=== PATIENT | female | born 1950 | race Caucasian/White ===

== ENCOUNTER 2018-01-10 21:55 | Emergency (ER) | payer OTHER ==
[~2018-01-10] VITALS: Ht 170.2 cm; Wt 136.1 kg
[~2018-01-10 21:55] MED LIST: ACETAMINOPHEN325 MG PO; ACYC800 PO; AMIT75 PO; BENTYL10 MG PO; CLIN150 PO; CLOB.05TC; CONESTTC; Cipro250 MG PO; EPIN.3I IM; GABA300 PO; GABA400 PO; HYDR1TAB94 PO; IBUP600 PO; LEVFLO500; LEVSOD137 PO; LIDO2TG30 TOP; MAGCIT300 PO; METR500; Naproxen250 MG PO; Norco 5-325 Ta1 EACH PO; OMEP40CA12 PO; PANT40 PO; PRED10 PO; Percocet 5-3251 EACH PO; Polytrim Eye Dr10 ML LEFTEYE; Protonix40 MG PO; RXCLIN PO; SENN187 PO; TRIA80TC TOP; TUMS ULTRA ST1177 MG PO; VENL150ER PO; VENL75 PO; VITAMIN D31000 UNIT PO; Zofran Odt4 MG SL; Zofran Odt8 MG SL
[2018-01-10 22:32] LABS: BASOPHILS ABSOLUTE AUTO 0.04 K/mm3 (0.00-0.23); BASOPHILS PERCENT AUTO 0 % (0-2); EOSINOPHILS ABSOLUTE AUTO 0.15 K/mm3 (0.00-0.68); EOSINOPHILS PERCENT AUTO 1 % (0-6); Hematocrit 41.2 % (33.0-51.0); IMMATURE GRAN ABSOLUTE AUTO 0.03 K/mm3 (0.00-0.10); IMMATURE GRAN PERCENT AUTO 0 % (0-1); LYMPHOCYTES ABSOLUTE AUTO 2.17 K/mm3 (0.84-5.20); LYMPHOCYTES PERCENT AUTO 20 % (21-46); MONOCYTES ABSOLUTE AUTO 1.33 K/mm3 (0.16-1.47); MONOCYTES PERCENT AUTO 12 % (4-13); Mean Corpuscular HGB 27.6 pg (26.0-34.0); Mean Corpuscular HGB Conc 31.6 g/dL (31.5-36.5); Mean Corpuscular Volume 88 fL (80-100); Mean Platelet Volume 10.6 fL (9.1-12.4); NEUTROPHILS ABSOLUTE AUTO 7.42 K/mm3 (1.96-9.15); NEUTROPHILS PERCENT AUTO 67 % (41-73); Platelet Count 321 K/mm3 (150-400); RDW Coefficient Variation 14.6 % (11.7-14.2); RDW Standard Deviation 47.2 fL (35.1-46.3); Red Blood Cell Count 4.71 M/mm3 (3.80-5.20); White Blood Cell Count 11.14 K/mm3 (4.00-11.30)
[2018-01-10 22:48] LABS: Albumin/Globulin Ratio 0.5 (0.8-1.8); Bilirubin, Total 0.4 mg/dL (0.1-1.0); Bun/Creatinine Ratio 16.4 (12.0-20.0); Calcium, Blood 8.9 mg/dL (8.5-10.1); Creatinine, Blood 1.28 mg/dL (0.40-1.00); Globulin, Blood 5.7 g/dL (2.2-4.0); Potassium, Blood 4.4 mmol/L (3.5-5.5); Total Protein, Blood 8.7 g/dL (6.4-8.2)
[2018-01-10] MEDS ORDERED: DEXT30SU PO (23:26)
[2018-04-04] MEDS ORDERED: ERGO400 PO (13:52)
[2018-04-04] MEDS ORDERED: Estrogel93 GM VAG (13:52)
[2018-04-04] MEDS ORDERED: TUMS ULTRA ST1177 MG PO (13:52)
[2018-04-04] MEDS ORDERED: TRIA15CR3 TOP (13:53)
[2018-04-04] MEDS ORDERED: LIDO5TO TOP (13:53)
[2018-04-04] MEDS ORDERED: VENL150ER PO (14:32)
[2018-04-04] MEDS ORDERED: PREG75 PO (14:33)
[2018-04-04] MEDS ORDERED: PROM25 PO (14:33)
[2018-04-04] MEDS ORDERED: CLOB.05TO TOP (14:33)
[2018-04-04] MEDS ORDERED: LEVSOD137 PO (14:34)
[2018-04-04] MEDS ORDERED: CHOL10002 PO (14:35)
[2018-04-04] MEDS ORDERED: TYLENOL ES PO (14:35)
[2018-04-04] MEDS ORDERED: Solaraze100 GM TOP (14:36)
[2018-05-24] MEDS ORDERED: ACET325 PO (09:58)
[2018-05-24] MEDS ORDERED: CENTRUM SILVER1 EAC3 PO (09:58)
== END 2018-01-10 23:53 | disposition home or self-care (01) ==
LOC: ER 21:55
PROVIDERS: Emergency Medicine
DX: J20.9 Acute bronchitis, unspecified (principal); E03.9 Hypothyroidism, unspecified; J45.909 Unspecified asthma, uncomplicated; Z88.1 Allergy status to other antibiotic agents; Z88.5 Allergy status to narcotic agent; Z91.048 Other nonmedicinal substance allergy status; Z91.09 Other allergy status, other than to drugs and biological substances; Z88.8 Allergy status to other drugs, medicaments and biological substances; Z91.030 Bee allergy status; Z79.899 Other long term (current) drug therapy; Z90.710 Acquired absence of both cervix and uterus
CPT/HCPCS: 36415; 71046; 80053; 85025; 99283

== ENCOUNTER 2018-04-07 07:55 | Day surgery (SDC) | payer OTHER ==
[~2018-04-07] VITALS: Ht 167.6 cm; Wt 135.2 kg
[~2018-04-07 07:55] MED LIST changes: +CHOL10002 PO; +CLOB.05TO TOP; +DEXT30SU PO; +ERGO400 PO; +Estrogel93 GM VAG; +LIDO5TO TOP; +PREG75 PO; +PROM25 PO; +Solaraze100 GM TOP; +TRIA15CR3 TOP; +TYLENOL ES PO
== END 2018-04-07 23:00 | disposition home or self-care (01) ==
LOC: ORSCMMR 07:55 → ORD 09:30 → ORSCMMR 23:00
PROVIDERS: Podiatrist Foot & Ankle Surgery
PROC: 0SNQ0ZZ Release Left Toe Phalangeal Joint, Open Approach (ICD-10-PCS; principal; 2018-04-07 09:30)
PROC: 0SGQ0ZZ (ICD-10-PCS; principal; 2018-04-07 09:30)
PROC: 0L8W0ZZ Division of Left Foot Tendon, Open Approach (ICD-10-PCS; principal; 2018-04-07 09:30)
PROC: 0QBP0ZZ Excision of Left Metatarsal, Open Approach (ICD-10-PCS; principal; 2018-04-07 09:30)
DX: M20.42 Other hammer toe(s) (acquired), left foot (principal); M79.673 Pain in unspecified foot; M19.079 Primary osteoarthritis, unspecified ankle and foot; M89.8X9 Other specified disorders of bone, unspecified site; E66.01 Morbid (severe) obesity due to excess calories; Z68.42 Body mass index [BMI] 45.0-49.9, adult; Z79.899 Other long term (current) drug therapy
CPT/HCPCS: J0690; J2250; J3010; J7120

== ENCOUNTER 2018-04-08 07:42 | Day surgery (SDC) | payer OTHER ==
[~2018-04-08] VITALS: Ht 170.2 cm; Wt 133.4 kg
== END 2018-04-08 10:57 | disposition home or self-care (01) ==
LOC: ORSCSDS 07:42
PROVIDERS: Orthopaedic Surgery
PROC: 0LN70ZZ Release Right Hand Tendon, Open Approach (ICD-10-PCS; principal; 2018-04-08 09:00)
DX: M65.341 Trigger finger, right ring finger (principal); E03.9 Hypothyroidism, unspecified; E66.01 Morbid (severe) obesity due to excess calories; Z79.899 Other long term (current) drug therapy
CPT/HCPCS: J0171; J2250; J3010

== ENCOUNTER 2018-05-11 11:08 | Day surgery (SDC) | payer OTHER ==
[~2018-05-11] VITALS: Ht 170.2 cm; Wt 131.0 kg
== END 2018-05-11 12:35 | disposition home or self-care (01) ==
LOC: ORSCSDS 11:08
PROVIDERS: Internal Medicine Gastroenterology
PROC: 0DBE8ZX Excision of Large Intestine, Via Natural or Artificial Opening Endoscopic, Diagnostic (ICD-10-PCS; principal; 2018-05-11 12:30)
PROC: 0DBL8ZX Excision of Transverse Colon, Via Natural or Artificial Opening Endoscopic, Diagnostic (ICD-10-PCS; principal; 2018-05-11 12:30)
PROC: 0DBN8ZX Excision of Sigmoid Colon, Via Natural or Artificial Opening Endoscopic, Diagnostic (ICD-10-PCS; principal; 2018-05-11 12:30)
DX: R19.7 Diarrhea, unspecified (principal); D12.3 Benign neoplasm of transverse colon; D12.5 Benign neoplasm of sigmoid colon; K57.30 Diverticulosis of large intestine without perforation or abscess without bleeding; K64.8 Other hemorrhoids; Z86.010 Personal history of colon polyps; K52.9 Noninfective gastroenteritis and colitis, unspecified; G47.33 Obstructive sleep apnea (adult) (pediatric); K21.9 Gastro-esophageal reflux disease without esophagitis; E66.9 Obesity, unspecified; Z68.42 Body mass index [BMI] 45.0-49.9, adult; Z79.899 Other long term (current) drug therapy
CPT/HCPCS: 88305; J2250; J7120

== ENCOUNTER 2018-05-31 10:35 | Day surgery (SDC) | payer OTHER ==
[~2018-05-31] VITALS: Ht 170.2 cm; Wt 130.5 kg
[~2018-05-31 10:35] MED LIST changes: +ACET325 PO; +CENTRUM SILVER1 EAC3 PO
== END 2018-05-31 17:36 | disposition home or self-care (01) ==
LOC: ORSCSDS 10:35
PROVIDERS: Orthopaedic Surgery
PROC: 0LQ14ZZ Repair Right Shoulder Tendon, Percutaneous Endoscopic Approach (ICD-10-PCS; principal; 2018-05-31 13:00)
PROC: 0RNJ4ZZ Release Right Shoulder Joint, Percutaneous Endoscopic Approach (ICD-10-PCS; principal; 2018-05-31 13:00)
DX: M75.111 Incomplete rotator cuff tear or rupture of right shoulder, not specified as traumatic (principal); M75.51 Bursitis of right shoulder; S46.101A Unspecified injury of muscle, fascia and tendon of long head of biceps, right arm, initial encounter; G47.33 Obstructive sleep apnea (adult) (pediatric); E66.01 Morbid (severe) obesity due to excess calories; Z68.42 Body mass index [BMI] 45.0-49.9, adult; Z79.899 Other long term (current) drug therapy
CPT/HCPCS: C1713; J0171; J0330; J2250; J2405; J3010; J7120

== ENCOUNTER 2018-12-08 09:52 | Emergency (ER) | payer OTHER ==
[~2018-12-08] VITALS: Ht 170.2 cm; Wt 127.0 kg
[2018-12-08 11:14] LABS: BASOPHILS ABSOLUTE AUTO 0.07 K/mm3 (0.00-0.23); BASOPHILS PERCENT AUTO 1 % (0-2); EOSINOPHILS ABSOLUTE AUTO 0.28 K/mm3 (0.00-0.68); EOSINOPHILS PERCENT AUTO 4 % (0-6); Hematocrit 45.8 % (33.0-51.0); Hemoglobin 14.4 g/dL (11.5-16.0); IMMATURE GRAN ABSOLUTE AUTO 0.02 K/mm3 (0.00-0.10); IMMATURE GRAN PERCENT AUTO 0 % (0-1); LYMPHOCYTES ABSOLUTE AUTO 1.88 K/mm3 (0.84-5.20); LYMPHOCYTES PERCENT AUTO 28 % (21-46); MONOCYTES ABSOLUTE AUTO 0.72 K/mm3 (0.16-1.47); MONOCYTES PERCENT AUTO 11 % (4-13); Mean Corpuscular HGB 27.6 pg (26.0-34.0); Mean Corpuscular HGB Conc 31.4 g/dL (31.5-36.5); Mean Corpuscular Volume 88 fL (80-100); Mean Platelet Volume 11.9 fL (9.1-12.4); NEUTROPHILS ABSOLUTE AUTO 3.85 K/mm3 (1.96-9.15); NEUTROPHILS PERCENT AUTO 56 % (41-73); Platelet Count 263 K/mm3 (150-400); RDW Coefficient Variation 15.3 % (11.7-14.2); RDW Standard Deviation 48.7 fL (35.1-46.3); Red Blood Cell Count 5.22 M/mm3 (3.80-5.20); White Blood Cell Count 6.82 K/mm3 (4.00-11.30)
[2018-12-08 11:35] LABS: Alanine Aminotransfer (ALT/SGP 24 U/L (12-78); Albumin, Blood 3.3 g/dL (3.4-5.0); Albumin/Globulin Ratio 0.7 (0.8-1.8); Alk Phos 81 U/L (50-136); Anion Gap 6 mmol/L (6-16); Aspartate Aminotrans (AST/SGOT 24 U/L (12-37); Bilirubin, Total 0.5 mg/dL (0.1-1.0); Blood Urea Nitrogen 27 mg/dL (8-24); Bun/Creatinine Ratio 25.2 (12.0-20.0); CO2, Blood 26 mmol/L (21-32); Calcium, Blood 8.4 mg/dL (8.5-10.1); Chloride, Blood 109 mmol/L (98-108); Creatinine, Blood 1.07 mg/dL (0.40-1.00); Globulin, Blood 4.7 g/dL (2.2-4.0); Glomerular Filtration Rate 54 (60-); Glucose, Blood 89 mg/dL (70-99); Potassium, Blood 3.9 mmol/L (3.5-5.5); Sodium, Blood 141 mmol/L (136-145); Troponin I <0.015 ng/mL (0.000-0.040)
[2018-12-08] MEDS ORDERED: Norco 5-325 Ta1 EACH PO (13:30)
[2018-12-08] MEDS ORDERED: SUCR1 PO (13:30)
[2018-12-08] MEDS ORDERED: OMEPRAZOLE MAGN20 MG PO (13:30)
== END 2018-12-08 15:11 | disposition home or self-care (01) ==
LOC: ER 09:52
PROVIDERS: Physician Assistant
DX: R07.89 Other chest pain (principal); R11.2 Nausea with vomiting, unspecified; R19.7 Diarrhea, unspecified; Z88.1 Allergy status to other antibiotic agents; Z88.8 Allergy status to other drugs, medicaments and biological substances; Z88.5 Allergy status to narcotic agent; Z91.030 Bee allergy status; Z79.899 Other long term (current) drug therapy; F32.9 Major depressive disorder, single episode, unspecified
CPT/HCPCS: 36415; 71046; 71260; 74019; 80053; 83690; 84484; 85025; 85379; 93005; 93010; 96360; 99284-25; J7120; Q9967

== ENCOUNTER 2019-03-16 07:28 | Day surgery (SDC) | payer OTHER ==
[~2019-03-16] VITALS: Ht 167.6 cm; Wt 131.6 kg
[~2019-03-16 07:28] MED LIST changes: +BACL10 PO; +EPIPEN0.3 MG/0.3 IM; +OMEPRAZOLE MAGN20 MG PO; +PREG300 PO; +SUCR1 PO; +Venlafaxine HC225 MG PO
--- NOTE | 2019-03-16 07:49 | NUR ---
PT ADMITTED TO [facility]. AGREES WITH PLANNED SURGER. MEDS, ALLERGIES AND HX REVIEWED. LUNG SOUNDS CLEAR.
--- NOTE | 2019-03-16 10:26 | NUR ---
PT TO STEPDOWN AWAKE, CONVERSING WITH STAFF. C/O 06/07 PAIN TO RIGHT HAND. CMS INTACT TO HAND. CAP REFILL BRISK. COUGHING UP MUCOUS INTO KLEENEX. PT STATES "I DO THIS ALL THE TIME."
--- NOTE | 2019-03-16 10:30 | NUR ---
SIPPING ON PO FLUIDS
--- NOTE | 2019-03-16 10:45 | NUR ---
PT MEDICATED FOR PAIN WITH 2 NORCO PER REQUEST. PAIN LEVEL 7/10.
--- NOTE | 2019-03-16 10:50 | NUR ---
TO BEDSIDE AT THIS TIME. PT VISITING WITH .
--- NOTE | 2019-03-16 10:54 | NUR ---
REVIEWED DISCHARGE INSTRUCTIONS WITH PATIENT AND - BOTH OF WHOM VERBALIZE UNDERSTANDING OF ALL INSTRUCTIONS GIVEN.
--- NOTE | 2019-03-16 11:04 | NUR ---
PT SITTING AT EDGE OF BED - ASSISTING PATIENT TO DRESS SELF. REEDUCATED ON NOT USING RIGHT HAND. PT DEMONSTRATES GOOD TECHNIQUE.
--- NOTE | 2019-03-16 11:11 | NUR ---
IV D/C TIP INTACT. PT DISCHARGED HOME VIA WC WITH TO DRIVE HER.
== END 2019-03-16 23:37 | disposition home or self-care (01) ==
LOC: ORSCMMR 07:28 → ORD 08:45 → ORSCMMR 08:45 → ORD 14:00 → ORSCMMR 23:37
PROVIDERS: Orthopaedic Surgery
PROC: 0LN80ZZ Release Left Hand Tendon, Open Approach (ICD-10-PCS; principal; 2019-03-16 08:45)
DX: M65.352 Trigger finger, left little finger (principal); M65.342 Trigger finger, left ring finger; M65.332 Trigger finger, left middle finger; M65.322 Trigger finger, left index finger; M65.312 Trigger thumb, left thumb; I25.2 Old myocardial infarction; G47.33 Obstructive sleep apnea (adult) (pediatric); E66.01 Morbid (severe) obesity due to excess calories; Z68.42 Body mass index [BMI] 45.0-49.9, adult; Z79.899 Other long term (current) drug therapy
CPT/HCPCS: A9270-GY; J0690; J1100; J1885; J2250; J2405; J2704; J7120

== ENCOUNTER 2019-03-21 10:19 | Day surgery (SDC) | payer OTHER ==
[~2019-03-21] VITALS: Ht 170.2 cm; Wt 129.2 kg
== END 2019-03-21 12:51 | disposition home or self-care (01) ==
LOC: ORSCSDS 10:19
PROVIDERS: Internal Medicine Gastroenterology
PROC: 0DB58ZX Excision of Esophagus, Via Natural or Artificial Opening Endoscopic, Diagnostic (ICD-10-PCS; principal; 2019-03-21 12:00)
PROC: 0D758ZZ Dilation of Esophagus, Via Natural or Artificial Opening Endoscopic (ICD-10-PCS; principal; 2019-03-21 12:00)
DX: R13.10 Dysphagia, unspecified (principal); K21.9 Gastro-esophageal reflux disease without esophagitis; I10 Essential (primary) hypertension; E03.9 Hypothyroidism, unspecified; Z79.899 Other long term (current) drug therapy
CPT/HCPCS: J2704; J7120

== ENCOUNTER 2019-06-09 11:34 | Day surgery (SDC) | payer OTHER ==
[~2019-06-09] VITALS: Ht 170.2 cm; Wt 131.8 kg
[~2019-06-09 11:34] MED LIST changes: +Prevacid Soluta30 MG PO
--- NOTE | 2019-06-09 12:25 | NUR ---
06/09/19 1225 Avery Floyd PATIENT STATES "BURNING ALLERGY" TO IODINE. SMALL AMOUNT OF IODINE PLACED TO PATIENT'S RIGHT WRIST TO CHECK FOR ADVERSE REACTION. NO SIGNS OF REACTION NOTED AT THIS TIME, WILL CONTINUE TO MONITOR
--- NOTE | 2019-06-09 15:09 | NUR ---
06/09/19 7974 Estephanie Sanchez Danitza 0612 PT. UP TO RECLINER WITH 2 NURSE SBA. PT. HAS CHRONIC BACK PAIN & ALSO C/O RIGHT FOOT PAIN FROM SURGERY. PT. ALSO C/O MELTON. PT. VERBALIZES WHEN UP TO RECLINER IT MADE HER BACK FEEL BETTER. RIGHT FOOT ELEVATED UP IN RECLINER UP ON 2 PILLOWS & BOOT INTACT. JUICE & SNACK AT HER SIDE. AT HER SIDE. PT. ENC. TO TAKE SLOW DEEP BREATHS. PT. MOANING WITH PAIN. PT. BEING MEDICATED PER DR. HUERTA. ICE BEHIND RIGHT KNEE.
--- NOTE | 2019-06-29 07:39 | NUR ---
06/29/19 0739 Tatianna Melendrez NO SOLUTION NECESSARY NOR ADDED TO DBX BONE PUTTY
== END 2019-06-09 16:47 | disposition home or self-care (01) ==
LOC: ORSCSDS 11:34
PROVIDERS: Podiatrist Foot & Ankle Surgery
PROC: 0LXV0ZZ Transfer Right Foot Tendon, Open Approach (ICD-10-PCS; principal; 2019-06-09 15:00)
PROC: 0QBG0ZZ Excision of Right Tibia, Open Approach (ICD-10-PCS; principal; 2019-06-09 15:00)
DX: S86.311A Strain of muscle(s) and tendon(s) of peroneal muscle group at lower leg level, right leg, initial encounter (principal); M67.471 Ganglion, right ankle and foot; M65.871 Other synovitis and tenosynovitis, right ankle and foot; I12.9 Hypertensive chronic kidney disease with stage 1 through stage 4 chronic kidney disease, or unspecified chronic kidney disease; N18.2 Chronic kidney disease, stage 2 (mild); G47.33 Obstructive sleep apnea (adult) (pediatric); E03.9 Hypothyroidism, unspecified; E66.01 Morbid (severe) obesity due to excess calories; Z68.42 Body mass index [BMI] 45.0-49.9, adult; Z79.899 Other long term (current) drug therapy; I25.2 Old myocardial infarction
CPT/HCPCS: 82947; J0690; J1100; J2370; J2405; J2704; J3010; J7120

== ENCOUNTER 2019-07-02 10:43 | Emergency (ER) | payer OTHER ==
[~2019-07-02] VITALS: Ht 170.2 cm; Wt 130.6 kg
[2019-07-02 11:55] LABS: BASOPHILS ABSOLUTE AUTO 0.05 K/mm3 (0.00-0.23); BASOPHILS PERCENT AUTO 1 % (0-2); EOSINOPHILS ABSOLUTE AUTO 0.13 K/mm3 (0.00-0.68); EOSINOPHILS PERCENT AUTO 2 % (0-6); Hemoglobin 14.4 g/dL (11.5-16.0); IMMATURE GRAN ABSOLUTE AUTO 0.01 K/mm3 (0.00-0.10); IMMATURE GRAN PERCENT AUTO 0 % (0-1); LYMPHOCYTES ABSOLUTE AUTO 1.55 K/mm3 (0.84-5.20); LYMPHOCYTES PERCENT AUTO 28 % (21-46); MONOCYTES ABSOLUTE AUTO 0.56 K/mm3 (0.16-1.47); MONOCYTES PERCENT AUTO 10 % (4-13); Mean Corpuscular HGB 28.5 pg (26.0-34.0); Mean Corpuscular Volume 89 fL (80-100); NEUTROPHILS ABSOLUTE AUTO 3.32 K/mm3 (1.96-9.15); NEUTROPHILS PERCENT AUTO 59 % (41-73); Platelet Count 261 K/mm3 (150-400); RDW Coefficient Variation 14.4 % (11.7-14.2); RDW Standard Deviation 46.6 fL (35.1-46.3); Red Blood Cell Count 5.05 M/mm3 (3.80-5.20); White Blood Cell Count 5.62 K/mm3 (4.00-11.30)
[2019-07-02 12:46] LABS: Alanine Aminotransfer (ALT/SGP 22 U/L (12-78); Albumin, Blood 3.2 g/dL (3.4-5.0); Albumin/Globulin Ratio 0.7 (0.8-1.8); Alk Phos 95 U/L (50-136); Anion Gap 5 mmol/L (6-16); Aspartate Aminotrans (AST/SGOT 17 U/L (12-37); Bilirubin, Total 0.3 mg/dL (0.1-1.0); Blood Urea Nitrogen 15 mg/dL (8-24); Bun/Creatinine Ratio 17.9 (12.0-20.0); CO2, Blood 27 mmol/L (21-32); Calcium, Blood 8.6 mg/dL (8.5-10.1); Chloride, Blood 110 mmol/L (98-108); Creatinine, Blood 0.84 mg/dL (0.40-1.00); Globulin, Blood 4.6 g/dL (2.2-4.0); Glomerular Filtration Rate >60 (60-); Glucose, Blood 98 mg/dL (70-99); Sodium, Blood 142 mmol/L (136-145); Total Protein, Blood 7.8 g/dL (6.4-8.2); Troponin I <0.015 ng/mL (0.000-0.040)
== END 2019-07-02 13:24 | disposition left against medical advice (07) ==
LOC: ER 10:43
PROVIDERS: Emergency Medicine
DX: Z53.21 Procedure and treatment not carried out due to patient leaving prior to being seen by health care provider (principal)
CPT/HCPCS: 36415; 71046; 80053; 83880; 84484; 85025; 93005; 93010

== ENCOUNTER → 2019-07-02 | Outpatient (CLI) | payer OTHER | END | disposition home or self-care (01) | LOC: LAB EV 14:32 → LAB SHORT 14:32 | DX: R07.9 Chest pain, unspecified (principal) | CPT/HCPCS: 84484; 85379 ==

== ENCOUNTER 2019-09-21 08:37 | Day surgery (SDC) | payer OTHER ==
[~2019-09-21] VITALS: Ht 169 cm; Wt 132.8 kg
== END 2019-09-21 23:58 | disposition home or self-care (01) ==
LOC: ORD 08:37 → CT 08:37 → ORD 09:30
DX: I25.10 Atherosclerotic heart disease of native coronary artery without angina pectoris (principal); M19.90 Unspecified osteoarthritis, unspecified site; K21.9 Gastro-esophageal reflux disease without esophagitis; Z88.5 Allergy status to narcotic agent; Z91.030 Bee allergy status
CPT/HCPCS: 75574; Q9967

== ENCOUNTER → 2019-10-12 | Outpatient (CLI) | payer OTHER ==
[2019-10-12 09:41] LABS: BASOPHILS ABSOLUTE AUTO 0.05 K/mm3 (0.00-0.23); BASOPHILS PERCENT AUTO 1 % (0-2); EOSINOPHILS ABSOLUTE AUTO 0.15 K/mm3 (0.00-0.68); EOSINOPHILS PERCENT AUTO 3 % (0-6); Hematocrit 43.8 % (33.0-51.0); IMMATURE GRAN ABSOLUTE AUTO 0.01 K/mm3 (0.00-0.10); IMMATURE GRAN PERCENT AUTO 0 % (0-1); LYMPHOCYTES ABSOLUTE AUTO 1.61 K/mm3 (0.84-5.20); LYMPHOCYTES PERCENT AUTO 29 % (21-46); MONOCYTES ABSOLUTE AUTO 0.62 K/mm3 (0.16-1.47); MONOCYTES PERCENT AUTO 11 % (4-13); Mean Corpuscular HGB 28.3 pg (26.0-34.0); Mean Corpuscular Volume 89 fL (80-100); NEUTROPHILS ABSOLUTE AUTO 3.15 K/mm3 (1.96-9.15); NEUTROPHILS PERCENT AUTO 56 % (41-73); Platelet Count 269 K/mm3 (150-400); RDW Coefficient Variation 14.5 % (11.7-14.2); RDW Standard Deviation 46.3 fL (35.1-46.3); Red Blood Cell Count 4.95 M/mm3 (3.80-5.20); White Blood Cell Count 5.59 K/mm3 (4.00-11.30)
[2019-10-12 09:59] LABS: Albumin/Globulin Ratio 0.6 (0.8-1.8); Bilirubin, Total 0.2 mg/dL (0.1-1.0); Bun/Creatinine Ratio 19.1 (12.0-20.0); Calcium, Blood 8.5 mg/dL (8.5-10.1); Creatinine, Blood 0.94 mg/dL (0.40-1.00); Free Thyroxine 0.9 ng/dL (0.70-1.60); Globulin, Blood 4.8 g/dL (2.2-4.0); Potassium, Blood 4.3 mmol/L (3.5-5.5); Thyroid Stimulating Hormone 3.868 uIU/mL (0.360-4.800); Total Protein, Blood 7.8 g/dL (6.4-8.2)
== END | disposition home or self-care (01) ==
LOC: LAB SHORT 09:35 → LAB EV 09:35
PROVIDERS: General Practice
DX: R53.81 Other malaise (principal)
CPT/HCPCS: 80053; 84439; 84443; 85025

== ENCOUNTER → 2020-02-08 | Outpatient (CLI) | payer OTHER ==
[2020-02-08 08:56] LABS: BASOPHILS ABSOLUTE AUTO 0.06 K/mm3 (0.00-0.23); BASOPHILS PERCENT AUTO 1 % (0-2); EOSINOPHILS ABSOLUTE AUTO 0.16 K/mm3 (0.00-0.68); EOSINOPHILS PERCENT AUTO 3 % (0-6); Hematocrit 43.2 % (33.0-51.0); Hemoglobin 14.2 g/dL (11.5-16.0); IMMATURE GRAN ABSOLUTE AUTO 0.02 K/mm3 (0.00-0.10); IMMATURE GRAN PERCENT AUTO 0 % (0-1); LYMPHOCYTES ABSOLUTE AUTO 1.94 K/mm3 (0.84-5.20); LYMPHOCYTES PERCENT AUTO 33 % (21-46); MONOCYTES ABSOLUTE AUTO 0.91 K/mm3 (0.16-1.47); MONOCYTES PERCENT AUTO 15 % (4-13); Mean Corpuscular HGB 28.5 pg (26.0-34.0); Mean Corpuscular HGB Conc 32.9 g/dL (31.5-36.5); Mean Corpuscular Volume 87 fL (80-100); NEUTROPHILS ABSOLUTE AUTO 2.86 K/mm3 (1.96-9.15); NEUTROPHILS PERCENT AUTO 48 % (41-73); Platelet Count 275 K/mm3 (150-400); RDW Coefficient Variation 14.4 % (11.7-14.2); RDW Standard Deviation 45.6 fL (35.1-46.3); Red Blood Cell Count 4.99 M/mm3 (3.80-5.20); White Blood Cell Count 5.95 K/mm3 (4.00-11.30)
[2020-02-08 09:00] LABS: Bun/Creatinine Ratio 17.5 (12.0-20.0); Calcium, Blood 8.7 mg/dL (8.5-10.1); Creatinine, Blood 1.03 mg/dL (0.40-1.00); Potassium, Blood 4.2 mmol/L (3.5-5.5)
== END ==
LOC: LAB EV 08:52 → LAB SHORT 08:52
PROVIDERS: Physician Assistant Surgical
DX: R10.31 Right lower quadrant pain (principal)
CPT/HCPCS: 80048; 85025

== ENCOUNTER 2020-09-03 09:05 | Emergency (ER) | payer OTHER ==
[~2020-09-03] VITALS: Ht 170.2 cm; Wt 129.7 kg
[2020-09-03] MEDS ORDERED: PREMARIN CREAM TOP (10:34)
[2020-09-03] MEDS ORDERED: DICLOFENAC SOD100 GM TOP (10:36)
[2020-09-03] MEDS ORDERED: ATOR20 PO (10:37)
[2020-09-03] MEDS ORDERED: HYDR1TAB94 PO (11:16)
== END 2020-09-03 11:54 | disposition home or self-care (01) ==
LOC: ER 09:05
DX: R51.9 Headache, unspecified (principal); F32.9 Major depressive disorder, single episode, unspecified; Z88.1 Allergy status to other antibiotic agents; Z88.5 Allergy status to narcotic agent; Z91.09 Other allergy status, other than to drugs and biological substances; Z91.041 Radiographic dye allergy status; Z88.8 Allergy status to other drugs, medicaments and biological substances; Z91.030 Bee allergy status; Z79.899 Other long term (current) drug therapy
CPT/HCPCS: 96361; 96374; 96375; 99284-25; J1200; J1885; J2765; J7030

== ENCOUNTER 2020-09-06 08:19 | Inpatient (IN) | payer OTHER ==
[~2020-09-06] VITALS: Ht 170.2 cm; Wt 132.0 kg
[~2020-09-06 08:19] MED LIST changes: +ATOR20 PO; +DICLOFENAC SOD100 GM TOP; +PREMARIN CREAM TOP
[2020-09-06] MEDS ORDERED: AMOX500 PO (08:41)
[2020-09-06] MEDS ORDERED: ASPI325 PO (08:41)
[2020-09-06 09:10] LABS: BASOPHILS ABSOLUTE AUTO 0.02 K/mm3 (0.00-0.23); BASOPHILS PERCENT AUTO 0 % (0-2); EOSINOPHILS ABSOLUTE AUTO 0.14 K/mm3 (0.00-0.68); EOSINOPHILS PERCENT AUTO 2 % (0-6); Hemoglobin 13.3 g/dL (11.5-16.0); IMMATURE GRAN ABSOLUTE AUTO 0.02 K/mm3 (0.00-0.10); IMMATURE GRAN PERCENT AUTO 0 % (0-1); LYMPHOCYTES ABSOLUTE AUTO 1.31 K/mm3 (0.84-5.20); LYMPHOCYTES PERCENT AUTO 18 % (21-46); MONOCYTES ABSOLUTE AUTO 0.82 K/mm3 (0.16-1.47); MONOCYTES PERCENT AUTO 11 % (4-13); Mean Corpuscular HGB Conc 31.7 g/dL (31.5-36.5); Mean Corpuscular Volume 88 fL (80-100); Mean Platelet Volume 11.6 fL (9.1-12.4); NEUTROPHILS ABSOLUTE AUTO 4.95 K/mm3 (1.96-9.15); NEUTROPHILS PERCENT AUTO 68 % (41-73); Platelet Count 220 K/mm3 (150-400); RDW Coefficient Variation 14.6 % (11.7-14.2); Red Blood Cell Count 4.75 M/mm3 (3.80-5.20); White Blood Cell Count 7.26 K/mm3 (4.00-11.30)
[2020-09-06 09:37] LABS: Alanine Aminotransfer (ALT/SGP 35 U/L (12-78); Albumin, Blood 2.7 g/dL (3.4-5.0); Albumin/Globulin Ratio 0.6 (0.8-1.8); Alk Phos 81 U/L (50-136); Anion Gap 8 mmol/L (6-16); Aspartate Aminotrans (AST/SGOT 31 U/L (12-37); Bilirubin, Total 0.4 mg/dL (0.1-1.0); Blood Urea Nitrogen 19 mg/dL (8-24); Bun/Creatinine Ratio 23.1 (12.0-20.0); CO2, Blood 23 mmol/L (21-32); Chloride, Blood 110 mmol/L (98-108); Creatinine, Blood 0.82 mg/dL (0.40-1.00); Globulin, Blood 4.8 g/dL (2.2-4.0); Glomerular Filtration Rate >60 (60-); Glucose, Blood 110 mg/dL (70-99); Potassium, Blood 3.8 mmol/L (3.5-5.5); Sodium, Blood 141 mmol/L (136-145); Total Protein, Blood 7.5 g/dL (6.4-8.2)
--- NOTE | 2020-09-06 16:52 | NUR ---
LEFT LEG CELLULITIS OUTLINED PER ORDERS.
--- NOTE | 2020-09-06 17:58 | NUR ---
SHIFT SUMMARY; ADMIT FROM ER IN LATE AFTERNOON. TRANSFERS FROM STRETCHER TO BED WITH ASSISTANCE. LR IN FUSING AT 100ML/HR, A/A/OX4. CELLULITIS TO LEFT LEG OUTLINED WITH SKIN MARKER. SCATTERED EXCORIATIONS AND SCABS THROUGHOUT BODY. PT STATES THIS HAS BEEN GOING ON FOR A WHILE. VSS, AMBULATE TO RESTROOM WITH WALKER AND STANDBY ASSIST. WILL CONTINUE TO TREAT AND MONITOR UNTIL CHANGE OF SHIFT.
[2020-09-06 18:55] LABS: U Opiates Screen DETECTED
[2020-09-06 18:56] LABS: U Amphetamine Screen Not Detected; U Barbituate Screen Not Detected; U Benzodiazapine Screen Not Detected; U Buprenorphine Screen Not Detected; U Cannabinoids Screen Not Detected; U Cocaine Screen Not Detected; U Methadone Screen Not Detected; U Methamphetamine Screen Not Detected; U Oxycodone Screen Not Detected; U Phencyclidine Screen Not Detected; U Propoxyphene Screen Not Detected
--- NOTE | 2020-09-06 22:15 | NUR ---
ASSUMED CARE AT 1915. PT A/OX4, SBA TO BATHROOM WITH FWW FOR DISCOMFORT IN L LEG. L LEG SWOLLEN AND RED; RED AREA MARKED BY PREVIOUS RN. CALL LIGHT IN REACH. MED WITH NORCO PER ORDERS FOR PAIN. DENIES FURTHER NEEDS.
--- NOTE | 2020-09-07 05:07 | NUR ---
SHIFT SUMMARY PT A/O X4. SBA TO BATHROOM WITH FWW FOR PAIN IN LLE. MED FOR PAIN PER ORDERS; SEE EMAR. RED AREA ON L LEG MARKED BY PREVIOUS RN. SWOLLEN AREA DOES SEEM TO BE GROWING, HOWEVER RED AREA HAS STAYED CLOSE TO ORIGINAL MARKINGS. PT TOLERATING PO INTAKE AND VOIDING.
[2020-09-07 05:15] LABS: BASOPHILS ABSOLUTE AUTO 0.04 K/mm3 (0.00-0.23); BASOPHILS PERCENT AUTO 1 % (0-2); EOSINOPHILS ABSOLUTE AUTO 0.27 K/mm3 (0.00-0.68); EOSINOPHILS PERCENT AUTO 6 % (0-6); Hematocrit 42.4 % (33.0-51.0); Hemoglobin 13.1 g/dL (11.5-16.0); IMMATURE GRAN ABSOLUTE AUTO 0.02 K/mm3 (0.00-0.10); IMMATURE GRAN PERCENT AUTO 0 % (0-1); LYMPHOCYTES PERCENT AUTO 30 % (21-46); MONOCYTES ABSOLUTE AUTO 0.66 K/mm3 (0.16-1.47); MONOCYTES PERCENT AUTO 14 % (4-13); Mean Corpuscular HGB 27.8 pg (26.0-34.0); Mean Corpuscular HGB Conc 30.9 g/dL (31.5-36.5); Mean Corpuscular Volume 90 fL (80-100); Mean Platelet Volume 11.6 fL (9.1-12.4); NEUTROPHILS ABSOLUTE AUTO 2.21 K/mm3 (1.96-9.15); NEUTROPHILS PERCENT AUTO 48 % (41-73); Platelet Count 198 K/mm3 (150-400); RDW Coefficient Variation 14.6 % (11.7-14.2); RDW Standard Deviation 48.8 fL (35.1-46.3); Red Blood Cell Count 4.71 M/mm3 (3.80-5.20)
[2020-09-07 05:50] LABS: Alanine Aminotransfer (ALT/SGP 34 U/L (12-78); Albumin, Blood 2.3 g/dL (3.4-5.0); Albumin/Globulin Ratio 0.5 (0.8-1.8); Alk Phos 72 U/L (50-136); Anion Gap 4 mmol/L (6-16); Aspartate Aminotrans (AST/SGOT 36 U/L (12-37); Bilirubin, Total 0.3 mg/dL (0.1-1.0); Blood Urea Nitrogen 15 mg/dL (8-24); Bun/Creatinine Ratio 17.3 (12.0-20.0); CO2, Blood 28 mmol/L (21-32); Calcium, Blood 8.5 mg/dL (8.5-10.1); Chloride, Blood 111 mmol/L (98-108); Creatinine, Blood 0.87 mg/dL (0.40-1.00); Globulin, Blood 4.7 g/dL (2.2-4.0); Glomerular Filtration Rate >60 (60-); Glucose, Blood 96 mg/dL (70-99); Potassium, Blood 4.1 mmol/L (3.5-5.5); Sodium, Blood 143 mmol/L (136-145)
--- NOTE | 2020-09-07 13:44 | NUR ---
RECEIVED REPORT FROM APRIL MARINO.
--- NOTE | 2020-09-07 14:43 | NUR ---
PT TRANSFER FROM PCU 15 TO MEDICAL 356 @6708. RECEIVED REPORT FROM APRIL MARINO. MEDICATED THE PT FOR PAIN ON HER LEG AND HEADACHE OF 08/08. PT USES WALKER @BASELINE- 1P ASSIST. DENIES CP; SOB; N&V. ON TELE NRS. BED IS IN THE LOWEST POSITION; CALL LIGHT WIHTIN REACH; AND WILL CONT MONITOR.
[2020-09-07 21:38] LABS: Vancomycin, Trough 16.4 ug/mL (5.0-10.0)
--- NOTE | 2020-09-08 01:21 | NUR ---
VOICED CHEST AND NECK PAINS EARLIER, RECEIVED IV FENTANYL. MED EFFECTIVE. NO FURTHER COMPLAINTS VOICED. RESTING QUIETLY AT THIS TIME. CALL LIGHT IN REACH
--- NOTE | 2020-09-08 04:46 | NUR ---
SHIFT SUMMARY AWAKE AT INTERVALS WITH PAIN OF BACK AND ONCE OF CHEST AND NECK PAIN. IV FENTANYL ADMIN AND WAS EFFECTIVE. IVF AND ANTIBIOTICS ADMIN PER MD ORDERS - SEE MAR FOR DETAILS. NO FURTHER C/O PAIN. RESTING QUIETLY AT THIS TIME. CALL LIGHT IN REACH
[2020-09-08 05:12] LABS: BASOPHILS ABSOLUTE AUTO 0.05 K/mm3 (0.00-0.23); BASOPHILS PERCENT AUTO 1 % (0-2); EOSINOPHILS ABSOLUTE AUTO 0.26 K/mm3 (0.00-0.68); EOSINOPHILS PERCENT AUTO 6 % (0-6); Hematocrit 41.4 % (33.0-51.0); Hemoglobin 12.8 g/dL (11.5-16.0); IMMATURE GRAN ABSOLUTE AUTO 0.04 K/mm3 (0.00-0.10); IMMATURE GRAN PERCENT AUTO 1 % (0-1); LYMPHOCYTES ABSOLUTE AUTO 1.57 K/mm3 (0.84-5.20); LYMPHOCYTES PERCENT AUTO 35 % (21-46); MONOCYTES ABSOLUTE AUTO 0.47 K/mm3 (0.16-1.47); MONOCYTES PERCENT AUTO 10 % (4-13); Mean Corpuscular HGB 27.8 pg (26.0-34.0); Mean Corpuscular HGB Conc 30.9 g/dL (31.5-36.5); Mean Corpuscular Volume 90 fL (80-100); Mean Platelet Volume 11.1 fL (9.1-12.4); NEUTROPHILS ABSOLUTE AUTO 2.11 K/mm3 (1.96-9.15); NEUTROPHILS PERCENT AUTO 47 % (41-73); Platelet Count 225 K/mm3 (150-400); RDW Coefficient Variation 14.3 % (11.7-14.2); RDW Standard Deviation 47.1 fL (35.1-46.3); Red Blood Cell Count 4.61 M/mm3 (3.80-5.20)
[2020-09-08 05:37] LABS: Anion Gap 3 mmol/L (6-16); Blood Urea Nitrogen 11 mg/dL (8-24); Bun/Creatinine Ratio 12.9 (12.0-20.0); CO2, Blood 30 mmol/L (21-32); Calcium, Blood 8.6 mg/dL (8.5-10.1); Chloride, Blood 110 mmol/L (98-108); Creatinine, Blood 0.85 mg/dL (0.40-1.00); Glomerular Filtration Rate >60 (60-); Glucose, Blood 95 mg/dL (70-99); Potassium, Blood 4.7 mmol/L (3.5-5.5); Sodium, Blood 143 mmol/L (136-145)
--- NOTE | 2020-09-08 10:49 | NUR ---
PT PLEASANT THIS AM. C/O HEADACHE AND LOW LEFT LEG PAIN. MED PER EMAR. H/R REG, NO MURMER NOTED. NSR AT 60 PER TELE. LUNGS CLEAR, RESP EASY, UNLABORED. ON RA.. BT X4 LAST BM YEST. VOIDS SBA 1 ASST TO BATHROOM WITH FWW. LEG MARKED FOR CELLULITIS. IS WARM RED PAINFUL SWOLLEN. SHERRI. BED IN LOW POSITION, CALL LITE IN REACH, CALLS APPROP
--- NOTE | 2020-09-08 17:14 | NUR ---
PT PLEASANT TODAY. STATES PAIN BETTER TODAY ALSO. HAS AMBULATED TO BATHROOM WITH FWW AND SBA. NO NEW CONCERNS AT THIS TIME. ABX CHANGED TODAY. BED IN LOW POSITION, CALL LITE IN REACH, CALLS APROP
--- NOTE | 2020-09-09 03:06 | NUR ---
SHIFT SUMMARY HAS BEEN AWAKE A FEW TIMES THIS SHIFT WITH REQUESTS FOR PAIN MEDS, FOR PAIN OF LEFT LEG. IVF AND ANTIBIOTICS INFUSING PER MD ORDERS -SEE MAR FOR DETAILS. CALL LIGHT IN REACH. RESTING QUIETLY AT THIS TIME
--- NOTE | 2020-09-10 03:30 | NUR ---
SHIFT SUMMARY HAS BEEN RESTING QUIETLY WITH FEW INTERRUPTIONS THIS SHIFT. WAS UP TO BR A FEW TIMES, ABLE TO DO SO WITHOUT ASSIST, MORE STEADY ON FEET. PAIN MEDS FOR LEG PAIN AND MIGRAINES - SEE MAR FOR DETAILS. CALL LIGHT IN REACH. ANTIBIOTICS ADMINISTERED PER MD ORDERS. ISOLATION PRECAUTIONS IN EFFECT.
[2020-09-10 05:05] LABS: BASOPHILS ABSOLUTE AUTO 0.07 K/mm3 (0.00-0.23); BASOPHILS PERCENT AUTO 1 % (0-2); EOSINOPHILS ABSOLUTE AUTO 0.23 K/mm3 (0.00-0.68); EOSINOPHILS PERCENT AUTO 4 % (0-6); Hematocrit 41.8 % (33.0-51.0); Hemoglobin 13.1 g/dL (11.5-16.0); IMMATURE GRAN ABSOLUTE AUTO 0.04 K/mm3 (0.00-0.10); IMMATURE GRAN PERCENT AUTO 1 % (0-1); LYMPHOCYTES ABSOLUTE AUTO 1.69 K/mm3 (0.84-5.20); LYMPHOCYTES PERCENT AUTO 31 % (21-46); MONOCYTES ABSOLUTE AUTO 0.54 K/mm3 (0.16-1.47); MONOCYTES PERCENT AUTO 10 % (4-13); Mean Corpuscular HGB 27.9 pg (26.0-34.0); Mean Corpuscular HGB Conc 31.3 g/dL (31.5-36.5); Mean Corpuscular Volume 89 fL (80-100); Mean Platelet Volume 11.2 fL (9.1-12.4); NEUTROPHILS ABSOLUTE AUTO 2.98 K/mm3 (1.96-9.15); NEUTROPHILS PERCENT AUTO 54 % (41-73); Platelet Count 270 K/mm3 (150-400); RDW Standard Deviation 45.3 fL (35.1-46.3); Red Blood Cell Count 4.69 M/mm3 (3.80-5.20); White Blood Cell Count 5.55 K/mm3 (4.00-11.30)
[2020-09-10 05:25] LABS: Anion Gap 5 mmol/L (6-16); Blood Urea Nitrogen 12 mg/dL (8-24); Bun/Creatinine Ratio 13.6 (12.0-20.0); CO2, Blood 31 mmol/L (21-32); Calcium, Blood 8.7 mg/dL (8.5-10.1); Chloride, Blood 106 mmol/L (98-108); Creatinine, Blood 0.88 mg/dL (0.40-1.00); Glomerular Filtration Rate >60 (60-); Glucose, Blood 91 mg/dL (70-99); Sodium, Blood 142 mmol/L (136-145)
--- NOTE | 2020-09-10 06:09 | NUR ---
INFECTION CONTROL CALLED, STATED PT NOT NEEDING ISOLATION - SEE INFECTION CONTROL DOCUMENTATION - ISO DC'D
[2020-09-10] MEDS ORDERED: CEPH500 PO (10:23)
[2020-09-10] MEDS ORDERED: Florastor250 MG PO (10:31)
[2020-09-10] MEDS ORDERED: BENADRYL25 MG PO (10:32)
--- NOTE | 2020-09-10 11:38 | NUR ---
DISCHARGE VERBALIZED UNDERSTANDING OF DISCHARGE ORDERS AND FOLLOW-UP. NO ACUTE EVENTS. LEGS SWELLING, WARMTH, REDNESS AND PAIN IMPROVED. ALL PERSONAL BELONGINGS TAKEN WITH PATIENT.
== END 2020-09-10 11:41 | disposition home health service (06) | DRG 603 ==
LOC: ER 08:19 → PCU 11:55 → MEDS 09-07 14:30
PROVIDERS: Family Medicine; Nurse Practitioner Acute Care; Physician Assistant; ADMIT Internal Medicine
DX: L03.116 Cellulitis of left lower limb (principal); Z68.41 Body mass index [BMI] 40.0-44.9, adult; A49.01 Methicillin susceptible Staphylococcus aureus infection, unspecified site; E03.9 Hypothyroidism, unspecified; E66.01 Morbid (severe) obesity due to excess calories; E78.5 Hyperlipidemia, unspecified; F32.9 Major depressive disorder, single episode, unspecified; G43.709 Chronic migraine without aura, not intractable, without status migrainosus; I25.10 Atherosclerotic heart disease of native coronary artery without angina pectoris; K21.9 Gastro-esophageal reflux disease without esophagitis; A46 Erysipelas
CPT/HCPCS: 36415; 73701; 80048; 80053; 80202; 85025; 87040; 93971; 96365; 96366; 96375; 99284-25; A9270; A9270-GY; J0690; J1200; J1650; J2405; J3010; J3370; J7050; J7120; Q2038; Q9967

== ENCOUNTER 2020-10-05 22:52 | Observation (INO) | payer OTHER ==
[~2020-10-05] VITALS: Ht 170.2 cm; Wt 130.1 kg
[~2020-10-05 22:52] MED LIST changes: +AMOX500 PO; +ASPI325 PO; +BENADRYL25 MG PO; +CEPH500 PO; +Florastor250 MG PO
[2020-10-05 23:19] LABS: BASOPHILS ABSOLUTE AUTO 0.07 K/mm3 (0.00-0.23); BASOPHILS PERCENT AUTO 1 % (0-2); EOSINOPHILS ABSOLUTE AUTO 0.29 K/mm3 (0.00-0.68); EOSINOPHILS PERCENT AUTO 4 % (0-6); Hematocrit 44.5 % (33.0-51.0); Hemoglobin 13.9 g/dL (11.5-16.0); IMMATURE GRAN ABSOLUTE AUTO 0.03 K/mm3 (0.00-0.10); IMMATURE GRAN PERCENT AUTO 0 % (0-1); LYMPHOCYTES PERCENT AUTO 30 % (21-46); MONOCYTES ABSOLUTE AUTO 0.85 K/mm3 (0.16-1.47); MONOCYTES PERCENT AUTO 11 % (4-13); Mean Corpuscular HGB 28.3 pg (26.0-34.0); Mean Corpuscular HGB Conc 31.2 g/dL (31.5-36.5); Mean Corpuscular Volume 90 fL (80-100); Mean Platelet Volume 11.2 fL (9.1-12.4); NEUTROPHILS PERCENT AUTO 54 % (41-73); Platelet Count 241 K/mm3 (150-400); RDW Coefficient Variation 15.2 % (11.7-14.2); RDW Standard Deviation 50.3 fL (35.1-46.3); Red Blood Cell Count 4.92 M/mm3 (3.80-5.20); White Blood Cell Count 7.74 K/mm3 (4.00-11.30)
[2020-10-05 23:40] LABS: Alanine Aminotransfer (ALT/SGP 19 U/L (12-78); Albumin, Blood 3.1 g/dL (3.4-5.0); Albumin/Globulin Ratio 0.6 (0.8-1.8); Alk Phos 89 U/L (50-136); Anion Gap 4 mmol/L (6-16); Aspartate Aminotrans (AST/SGOT 18 U/L (12-37); Bilirubin, Total 0.2 mg/dL (0.1-1.0); Blood Urea Nitrogen 21 mg/dL (8-24); Bun/Creatinine Ratio 12.7 (12.0-20.0); CO2, Blood 30 mmol/L (21-32); Chloride, Blood 107 mmol/L (98-108); Creatinine, Blood 1.66 mg/dL (0.40-1.00); Glomerular Filtration Rate 32 (60-); Glucose, Blood 95 mg/dL (70-99); Potassium, Blood 3.9 mmol/L (3.5-5.5); Sodium, Blood 141 mmol/L (136-145); Total Protein, Blood 8.1 g/dL (6.4-8.2); Troponin I <0.015 ng/mL (0.000-0.040)
[2020-10-06 00:02] LABS: International Normalized Ratio 1.01; Prothrombin Time Results 10.8 Sec (9.7-11.5)
[2020-10-06 03:12] LABS: CPK Creatine Kinase 61 U/L (26-193)
[2020-10-06 03:50] LABS: Source, Urine Clean Catch
[2020-10-06 03:53] LABS: Bilirubin, Urine Neg (Neg); Blood, Urine Neg (Neg); Glucose Qualitative, Urine Neg (Neg); Ketones, Urine Neg (Neg); Leukocyte Esterase, Urine 1+ (Neg); Nitrite, Urine Neg (Neg); Protein, Urine Neg (Neg); Specific Gravity, Urine 1.015 (1.003-1.022); Urobilinogen, Urine NORM (Normal)
[2020-10-06 03:56] LABS: Appearance, Urine Clear (Clear); Color, Urine Yellow (P-Yellow)
[2020-10-06 03:59] LABS: Bacteria Few /hpf; Red Blood Cells, Urine Not Seen /hpf (0-2); Squamous Epithelial Cells Few /hpf (Few); White Blood Cells, Urine 0-2 /hpf (0-5)
--- NOTE | 2020-10-06 04:36 | NUR ---
PCU ADMIT PT BROUGHT TO PCU-08 BY ROLF FROM ER @ APPROX 0320. PT A&O X4, ABLE TO STAND AND WEAKLY AMBULATE TO PCU BED FROM ROLF W/ 1 PERSON ASSIST. PT APPEARS CALM & RELAXED, REPORTING 3/10 CP THAT SHE DESCRIBES "PRESSURE ACROSS MY CHEST & RADIATES UP THREW MY SHOULDER & DOWN MY ARM." PT POINTING TO R ARM WHILE DESCRIBING. PT REPORTS HAVING TAKEN NITRO W/ NO IMPROVEMENT IN PAIN, BUT REPORTS IV FENTANYL IN ER "TEMPORARILY STOPS THE PAIN." PT THEN ASKING "WHEN CAN I HAVE MORE OF THAT?" PT THEN CLUTCHING CHEST & MOANING. PT THEN STOPPING & RELAXING. MONITOR SHOWS NSR, HR 70's. SPO2 > 92% ON RA. VSS. PT REPORTS JUST HAVING RECENTLY BEEN CALLED TO HER [id number] HOME TO CHECK ON HER NEPHEW WHO THEY FOUND TO BE . PT REPORTS NEPHEW WAS "STIFF & RIGID" WHEN SHE FOUND HIM & BELIEVES HE FROM A HEROIN OVERDOSE. PT REPORTS "I THINK THAT'S WHAT'S TRIGGERED THIS." TIME SPENT COMFORTING PT, THEN PT SETTLED IN FOR SLEEP, NOW SLEEPING QUIETLY IN RM. WILL CONTINUE TO MONITOR & PROVIDE CARE.
--- NOTE | 2020-10-06 06:24 | NUR ---
SHIFT SUMMARY PT A&O X4. VSS. MONITOR SHOWS NSR, HR 60's-70's. SPO2 > 92% ON RA. PT SLEEPING WELL AFTER ADMIT TO UNIT. PT WOKEN FOR 0600 AM MEDICATION W/ PT REPORT OF "THE PAIN IS STILL KIND OF THERE, BUT IT's BETTER." PT THEN ABLE TO GO BACK TO SLEEP. WILL CONTINUE TO MONITOR & PROVIDE UNTIL REPORT OFF TO DAY SHIFT RN.
[2020-10-06 07:14] LABS: BASOPHILS ABSOLUTE AUTO 0.01 K/mm3 (0.00-0.23); BASOPHILS PERCENT AUTO 0 % (0-2); EOSINOPHILS PERCENT AUTO 0 % (0-6); Hematocrit 43.2 % (33.0-51.0); Hemoglobin 14.2 g/dL (11.5-16.0); IMMATURE GRAN ABSOLUTE AUTO 0.01 K/mm3 (0.00-0.10); IMMATURE GRAN PERCENT AUTO 0 % (0-1); LYMPHOCYTES ABSOLUTE AUTO 0.91 K/mm3 (0.84-5.20); LYMPHOCYTES PERCENT AUTO 14 % (21-46); MONOCYTES ABSOLUTE AUTO 0.03 K/mm3 (0.16-1.47); MONOCYTES PERCENT AUTO 1 % (4-13); Mean Corpuscular HGB 29.4 pg (26.0-34.0); Mean Corpuscular HGB Conc 32.9 g/dL (31.5-36.5); Mean Corpuscular Volume 89 fL (80-100); Mean Platelet Volume 11.6 fL (9.1-12.4); NEUTROPHILS ABSOLUTE AUTO 5.49 K/mm3 (1.96-9.15); NEUTROPHILS PERCENT AUTO 85 % (41-73); Platelet Count 248 K/mm3 (150-400); RDW Coefficient Variation 14.9 % (11.7-14.2); RDW Standard Deviation 49.1 fL (35.1-46.3); Red Blood Cell Count 4.83 M/mm3 (3.80-5.20); White Blood Cell Count 6.45 K/mm3 (4.00-11.30)
[2020-10-06 07:34] LABS: CPK Creatine Kinase 44 U/L (26-193)
[2020-10-06 07:36] LABS: Albumin/Globulin Ratio 0.6 (0.8-1.8); Bilirubin, Total 0.3 mg/dL (0.1-1.0); Bun/Creatinine Ratio 19.8 (12.0-20.0); Calcium, Blood 9.1 mg/dL (8.5-10.1); Creatinine, Blood 1.21 mg/dL (0.40-1.00); Globulin, Blood 4.9 g/dL (2.2-4.0); Potassium, Blood 4.3 mmol/L (3.5-5.5); Total Protein, Blood 7.9 g/dL (6.4-8.2)
--- NOTE | 2020-10-06 08:40 | NUR ---
CHEST PAIN: PT REPORT 5/10 CHEST PAIN STARTING MIDSTERNAL RADIATING UP INTO HER NECK AND A STABBING PAIN INTO HER BACK. PT STATES SHE IS UNSURE IF FINDING HER NEPHEW IN HIS BED CAUSED THIS EPPISODE OF CHEST PAIN. PT STATES SHE ATTEMPTED TO TAKE NITRO AT HOME WITH NO RELIEF. PT STATES INCREASED CHEST PAIN WITH SITTING UP OR AMBULATING.
--- NOTE | 2020-10-07 06:39 | NUR ---
SHIFT SUMMARY PT WAS ALERT AND ORIENTED, PLEASESNT AND HELPFUL WITH HER CARE. SHE DENIED CHEST PAIN T/O SHIFT, NO CHESTPAIN WITH AMBULATION. HR WAS STABLE IN THE 50'S, BP STABLE AROUND 140 SYSTOLIC. PT ON ROOM AIR WITH 02 SATS IN THE 90'S. PT WAS ABLE TO SLEEP MOST OF THE NIGHT, PT HAS BEEN NPO ALL SHIFT ASIDE FROM ONE MORNING MEDICATION AND A SIP OF WATER TO SWALLOW IT. PT IS AWAKE AND HAD VERY UNEVENTFUL NIGHT, WILL CONTINUE TO MONITOR UNTIL SHIFT CHANGE.
--- NOTE | 2020-10-07 19:25 | NUR ---
SHIFT SUMMARY: NO ACUTE EVENTS TO REPORT THSI SHIFT. PT A&O; CALM AND COOPERATIVE WITH CARE. MEDICATED FOR MELTON & ESOPHAGUS PAIN PER EMAR. DIET ADVANCED TO CLEAR LIQUIDS; PT DID NOT TOLERATE WELL-C/O ESOPHAGEAL PAIN; GI CONSULT (DR BARTON) THIS SHIFT; CARAFATE & PPI ORDERED. REPORT GIVEN TO ONCOMING RN.
--- NOTE | 2020-10-08 01:39 | NUR ---
SUMMARY PT A&O X4; DENIES CHEST PAIN; VSS; SINUS RUBI NOTED ON TELE; O2 SATS >93 ON RA; AT BEDSIDE APPROXIMATLEY @ 2000; PO MEDS TAKEN W/ NO DIFFICULTY; PO FLUIDS ENCOURAGED; NO DISTRESS NOTED T/O SHIFT; CALL LIGHT IN REACH; BED IN LOWEST POSITION; REPORT GIVEN TO JAMILA SALVADOR.
--- NOTE | 2020-10-08 02:33 | NUR ---
ASSUMPTION OF CARE AT THIS TIME PATIENT APPEARS TO BE ASLEEP, CALL LIGHT IN REACH.
[2020-10-08 05:12] LABS: Hematocrit 43.3 % (33.0-51.0); Hemoglobin 13.5 g/dL (11.5-16.0); Mean Corpuscular HGB 28.4 pg (26.0-34.0); Mean Corpuscular HGB Conc 31.2 g/dL (31.5-36.5); Mean Corpuscular Volume 91 fL (80-100); Mean Platelet Volume 11.4 fL (9.1-12.4); Platelet Count 208 K/mm3 (150-400); RDW Coefficient Variation 15.4 % (11.7-14.2); RDW Standard Deviation 51.8 fL (35.1-46.3); Red Blood Cell Count 4.75 M/mm3 (3.80-5.20); White Blood Cell Count 6.18 K/mm3 (4.00-11.30)
[2020-10-08 05:39] LABS: Anion Gap 5 mmol/L (6-16); Blood Urea Nitrogen 18 mg/dL (8-24); Bun/Creatinine Ratio 20.4 (12.0-20.0); CO2, Blood 26 mmol/L (21-32); Calcium, Blood 8.3 mg/dL (8.5-10.1); Chloride, Blood 111 mmol/L (98-108); Creatinine, Blood 0.88 mg/dL (0.40-1.00); Glomerular Filtration Rate >60 (60-); Glucose, Blood 86 mg/dL (70-99); Potassium, Blood 3.7 mmol/L (3.5-5.5); Sodium, Blood 142 mmol/L (136-145)
--- NOTE | 2020-10-08 07:20 | NUR ---
SHIFT SUMMARY PATIENT PLEASENT AND COOPERATIVE THROUGHOUT THE NIGHT. PATIENT APPEARED TO SLEEP WELL LAST NIGHT. PATIENT MEDICATED FOR A HEADACHE PER EMAR. IV FLUIDS RUNNING PER EMAR. PATIENT SBA WITH FWW TO BATHROOM AND BACK TO BED. PATIENT CURRENTLY APPEARS TO BE SLEEPING. REPORT GIVEN TO BIPIN MARINO.
--- NOTE | 2020-10-08 07:30 | NUR ---
ASSUMED CARE: PT RESTING QUIETLY AT THIS TIME. SINUS RUBI ON TELE. NO ACUTE NEEDS OR CONCERNS.
--- NOTE | 2020-10-08 08:46 | NUR ---
PT STATES SHE WAS HAVING CHEST PRESSURE AFTER EATING BUT NO CHEST PAIN. DR PADRON AT BEDSIDE SPEAKING WITH PT ABOUT PLAN. AWARE OF PRESSURE AFTER EATING
[2020-10-08] MEDS ORDERED: PANT40 PO (15:06)
[2020-10-08] MEDS ORDERED: Isosorbide Mono30 MG PO (15:07)
[2020-10-08] MEDS ORDERED: Carafate1 GM/10 ML PO (15:07)
--- NOTE | 2020-10-08 16:00 | NUR ---
DISCUSSED PT'S DC WITH HER. PT GIVEN DC INSTRUCTIONS AND WAS TOLD TO CALL DRS FOR FOLLOW UP APPOINTMENTS. INSTRUCTED ON NEW MEDS. IV DC'D WNL. PT ESCORTED OUT VIA WHEEL CHAIR. DENIES FURTHER QUESTIONS OR CONCERNS.
== END 2020-10-08 16:01 | disposition home or self-care (01) ==
LOC: ER 22:52 → PCU 22:53 → ENPENDDIS 10-08 13:00 → PCU 10-08 16:01
PROVIDERS: Emergency Medicine; Internal Medicine; Student in an Organized Health Care Education/Training Program; ADMIT Internal Medicine
DX: K21.9 Gastro-esophageal reflux disease without esophagitis (principal); I25.10 Atherosclerotic heart disease of native coronary artery without angina pectoris; N17.9 Acute kidney failure, unspecified; N18.2 Chronic kidney disease, stage 2 (mild); I16.0 Hypertensive urgency; G43.909 Migraine, unspecified, not intractable, without status migrainosus; F32.9 Major depressive disorder, single episode, unspecified; G89.29 Other chronic pain; M54.9 Dorsalgia, unspecified; E89.0 Postprocedural hypothyroidism; M19.90 Unspecified osteoarthritis, unspecified site; E78.5 Hyperlipidemia, unspecified; E66.01 Morbid (severe) obesity due to excess calories; Z68.41 Body mass index [BMI] 40.0-44.9, adult; Z88.1 Allergy status to other antibiotic agents; Z88.5 Allergy status to narcotic agent; Z91.048 Other nonmedicinal substance allergy status; Z91.041 Radiographic dye allergy status; Z91.030 Bee allergy status; Z91.09 Other allergy status, other than to drugs and biological substances; Z79.82 Long term (current) use of aspirin; Z79.899 Other long term (current) drug therapy; Z87.11 Personal history of peptic ulcer disease; Z90.710 Acquired absence of both cervix and uterus; Z90.49 Acquired absence of other specified parts of digestive tract; Z23 Encounter for immunization
CPT/HCPCS: 36415; 71046; 71275; 74175; 76770; 80048; 80053; 81001; 82550; 83690; 83880; 84484; 85025; 85027; 85610; 85730; 93005; 93010; 96372; 96374; 96375; 96376; 99285-25; A9270; A9270-GY; C9113; G0008; G0378; J1200; J1650; J2930; J3010; J7030; J7050; Q2038; Q9967

== ENCOUNTER 2020-10-21 02:31 | Emergency (ER) | payer OTHER ==
[~2020-10-21] VITALS: Ht 170.2 cm; Wt 124.3 kg
[~2020-10-21 02:31] MED LIST changes: +Carafate1 GM/10 ML PO; +Isosorbide Mono30 MG PO
[2020-10-21 03:49] LABS: BASOPHILS ABSOLUTE AUTO 0.06 K/mm3 (0.00-0.23); BASOPHILS PERCENT AUTO 1 % (0-2); EOSINOPHILS ABSOLUTE AUTO 0.12 K/mm3 (0.00-0.68); EOSINOPHILS PERCENT AUTO 1 % (0-6); Hematocrit 41.8 % (33.0-51.0); Hemoglobin 13.5 g/dL (11.5-16.0); IMMATURE GRAN ABSOLUTE AUTO 0.01 K/mm3 (0.00-0.10); IMMATURE GRAN PERCENT AUTO 0 % (0-1); LYMPHOCYTES ABSOLUTE AUTO 2.33 K/mm3 (0.84-5.20); LYMPHOCYTES PERCENT AUTO 28 % (21-46); MONOCYTES ABSOLUTE AUTO 0.76 K/mm3 (0.16-1.47); MONOCYTES PERCENT AUTO 9 % (4-13); Mean Corpuscular HGB 28.7 pg (26.0-34.0); Mean Corpuscular HGB Conc 32.3 g/dL (31.5-36.5); Mean Corpuscular Volume 89 fL (80-100); Mean Platelet Volume 11.6 fL (9.1-12.4); NEUTROPHILS ABSOLUTE AUTO 5.05 K/mm3 (1.96-9.15); NEUTROPHILS PERCENT AUTO 61 % (41-73); Platelet Count 273 K/mm3 (150-400); RDW Coefficient Variation 15.1 % (11.7-14.2); RDW Standard Deviation 49.8 fL (35.1-46.3); White Blood Cell Count 8.33 K/mm3 (4.00-11.30)
[2020-10-21 04:11] LABS: Alanine Aminotransfer (ALT/SGP 20 U/L (12-78); Albumin, Blood 3.2 g/dL (3.4-5.0); Albumin/Globulin Ratio 0.7 (0.8-1.8); Alk Phos 82 U/L (50-136); Anion Gap 5 mmol/L (6-16); Aspartate Aminotrans (AST/SGOT 16 U/L (12-37); Bilirubin, Total 0.4 mg/dL (0.1-1.0); Blood Urea Nitrogen 29 mg/dL (8-24); Bun/Creatinine Ratio 25.4 (12.0-20.0); CO2, Blood 27 mmol/L (21-32); Calcium, Blood 8.9 mg/dL (8.5-10.1); Chloride, Blood 111 mmol/L (98-108); Creatinine, Blood 1.14 mg/dL (0.40-1.00); Globulin, Blood 4.6 g/dL (2.2-4.0); Glomerular Filtration Rate 50 (60-); Glucose, Blood 98 mg/dL (70-99); Potassium, Blood 3.7 mmol/L (3.5-5.5); Sodium, Blood 143 mmol/L (136-145); Total Protein, Blood 7.8 g/dL (6.4-8.2); Troponin I <0.015 ng/mL (0.000-0.040)
== END 2020-10-21 05:26 | disposition home or self-care (01) ==
LOC: ER 02:31
PROVIDERS: Emergency Medicine
DX: R51.9 Headache, unspecified (principal); K21.9 Gastro-esophageal reflux disease without esophagitis; F32.9 Major depressive disorder, single episode, unspecified; E78.5 Hyperlipidemia, unspecified; E03.9 Hypothyroidism, unspecified; I25.2 Old myocardial infarction; Z79.899 Other long term (current) drug therapy; Z88.1 Allergy status to other antibiotic agents; Z91.09 Other allergy status, other than to drugs and biological substances; Z88.5 Allergy status to narcotic agent; Z91.030 Bee allergy status; Z79.82 Long term (current) use of aspirin
CPT/HCPCS: 36415; 71046; 80053; 84484; 85025; 93005; 93010; 96374; 96375; 99284-25; J1200; J1885; J2405

== ENCOUNTER → 2020-11-25 | Outpatient (CLI) | payer OTHER ==
[~2020-11-25] MED LIST changes: +ACET500 PO; +Aspir 8181 MG PO; +CONEST.625 PO; +LYRICA150 M1 PO; +SUMA25 PO; +THERA-D2000 UNIT PO; +TUMS500 MG PO; +UBRELVY100 MG PO; +VENL25 PO; +VENLAFAXINE HC225 MG PO; +Voltaren100 GM TOP; +ZEBUTAL 50-3251 EAC1 PO
[2020-11-25 10:50] LABS: Bun/Creatinine Ratio 25.3 (12.0-20.0); Calcium, Blood 8.5 mg/dL (8.5-10.1); Creatinine, Blood 0.95 mg/dL (0.40-1.00); Potassium, Blood 4.5 mmol/L (3.5-5.5)
== END ==
LOC: LAB 10:42 → LAB SHORT 10:42
PROVIDERS: Physician Assistant Medical
DX: G43.909 Migraine, unspecified, not intractable, without status migrainosus (principal)
CPT/HCPCS: 80048

== ENCOUNTER 2021-02-12 00:27 | Day surgery (SDC) | payer OTHER ==
[~2021-02-12 00:27] MED LIST changes: -ACET500 PO; -Aspir 8181 MG PO; -CONEST.625 PO; -LYRICA150 M1 PO; -SUMA25 PO; -THERA-D2000 UNIT PO; -TUMS500 MG PO; -UBRELVY100 MG PO; -VENL25 PO; -VENLAFAXINE HC225 MG PO; -Voltaren100 GM TOP; -ZEBUTAL 50-3251 EAC1 PO
[2021-02-12] MEDS ORDERED: ZEBUTAL 50-3251 EAC1 PO (09:28)
[2021-02-12] MEDS ORDERED: SUMA25 PO (09:29)
[2021-02-12] MEDS ORDERED: UBRELVY100 MG PO (09:29)
[2021-02-12] MEDS ORDERED: CLOB.05TO TOP (09:30)
[2021-02-12] MEDS ORDERED: EPIPEN0.3 MG/0.3 IM (09:31)
[2021-02-12] MEDS ORDERED: LIDO5TO TOP (09:31)
[2021-02-12] MEDS ORDERED: Voltaren100 GM TOP (09:31)
[2021-02-12] MEDS ORDERED: TUMS500 MG PO (09:32)
[2021-02-12] MEDS ORDERED: VENL150ER PO (09:32)
[2021-02-12] MEDS ORDERED: CONEST.625 PO (09:41)
[2021-02-12] MEDS ORDERED: THERA-D2000 UNIT PO (09:41)
[2021-02-12] MEDS ORDERED: ACET500 PO (09:42)
[2021-02-12] MEDS ORDERED: GABA400 PO (09:42)
--- NOTE | 2021-02-12 09:45 | NUR ---
LABS DRAWN FROM IV PER HOSPITAL PROTOCOL
--- NOTE | 2021-02-12 09:45 | NUR ---
LABS DRAWN FROM IV START PER HOSPITAL PROTOCOL
[2021-04-24] MEDS ORDERED: Aspir 8181 MG PO (08:36)
[2021-04-24] MEDS ORDERED: SUCR1 PO (08:38)
[2021-04-24] MEDS ORDERED: LYRICA150 M1 PO (08:38)
[2021-04-24] MEDS ORDERED: VENLAFAXINE HC225 MG PO (08:39)
== END 2021-02-12 10:12 | disposition home or self-care (01) ==
LOC: ATC 00:27
DX: E27.40 Unspecified adrenocortical insufficiency (principal); K21.9 Gastro-esophageal reflux disease without esophagitis; G43.909 Migraine, unspecified, not intractable, without status migrainosus; M47.9 Spondylosis, unspecified
CPT/HCPCS: 36415; 80400; 82533; 96372; J0834

== ENCOUNTER → 2021-02-26 | Outpatient (CLI) | payer OTHER ==
[~2021-02-26] MED LIST changes: +ACET500 PO; +Aspir 8181 MG PO; +CONEST.625 PO; +LYRICA150 M1 PO; +SUMA25 PO; +THERA-D2000 UNIT PO; +TUMS500 MG PO; +UBRELVY100 MG PO; +VENL25 PO; +VENLAFAXINE HC225 MG PO; +Voltaren100 GM TOP; +ZEBUTAL 50-3251 EAC1 PO
== END ==
LOC: LAB SHORT 09:47 → LAB EV 09:47
DX: N39.0 Urinary tract infection, site not specified (principal); Z88.6 Allergy status to analgesic agent; Z88.5 Allergy status to narcotic agent; Z88.1 Allergy status to other antibiotic agents; Z91.041 Radiographic dye allergy status; Z91.030 Bee allergy status; Z91.048 Other nonmedicinal substance allergy status
CPT/HCPCS: 87077; 87086; 87147; 87186

== ENCOUNTER 2021-05-02 07:36 | Day surgery (SDC) | payer OTHER ==
[~2021-05-02] VITALS: Ht 170.2 cm; Wt 137.2 kg
[~2021-05-02 07:36] MED LIST changes: -VENL25 PO
[2021-05-02] MEDS ORDERED: VENL25 PO (08:45)
--- NOTE | 2021-05-02 09:29 | NUR ---
05/02/21 0929 Jose Luis Arguelles SCRATCH ON CHIN, NOT OPEN.
--- NOTE | 2021-05-02 11:22 | NUR ---
05/02/21 1122 Lesley De Luna PT STATES THAT HER PAIN BEFORE THE PROCEDURE FOR THE LAST FEW MONTHS IS BETWEEN 8 AND 9. PT STATES THAT HER PAIN IS TOLERABLE BELOW 8, PT STATES THAT HER PAIN IS SLIGHTLY BELOW 8.
== END 2021-05-02 11:10 | disposition home or self-care (01) ==
LOC: ORSCSDS 07:36
PROVIDERS: Podiatrist Foot & Ankle Surgery
PROC: 0L8N0ZZ Division of Right Lower Leg Tendon, Open Approach (ICD-10-PCS; principal; 2021-05-02 08:55)
PROC: 0LNV0ZZ Release Right Foot Tendon, Open Approach (ICD-10-PCS; principal; 2021-05-02 08:55)
DX: M24.571 Contracture, right ankle (principal); M20.61 Acquired deformities of toe(s), unspecified, right foot; I10 Essential (primary) hypertension; I25.10 Atherosclerotic heart disease of native coronary artery without angina pectoris; E78.5 Hyperlipidemia, unspecified; N18.2 Chronic kidney disease, stage 2 (mild); E03.9 Hypothyroidism, unspecified; E66.01 Morbid (severe) obesity due to excess calories; Z68.42 Body mass index [BMI] 45.0-49.9, adult; K21.9 Gastro-esophageal reflux disease without esophagitis; Z79.899 Other long term (current) drug therapy; Z79.82 Long term (current) use of aspirin
CPT/HCPCS: A9270; J0171; J0690; J1100; J2405; J2704; J3010; J7120

== ENCOUNTER → 2022-10-12 | Outpatient (CLI) | payer OTHER ==
[~2022-10-12] MED LIST changes: +VENL25 PO
== END | disposition home or self-care (01) ==
LOC: LAB SHORT 11:43 → LAB 11:43
DX: S31.109A Unspecified open wound of abdominal wall, unspecified quadrant without penetration into peritoneal cavity, initial encounter (principal)
CPT/HCPCS: 87070; 87077; 87147; 87186; 87205

== ENCOUNTER 2022-11-06 15:08 | Emergency (ER) | payer OTHER ==
[~2022-11-06] VITALS: Ht 170.2 cm; Wt 136.1 kg
[2022-11-06] MEDS ORDERED: LEVOFLOXACIN 500 MG (15:20)
[2022-11-06 15:43] LABS: BASOPHILS ABSOLUTE AUTO 0.09 K/mm3 (0.00-0.23); BASOPHILS PERCENT AUTO 1 % (0-2); EOSINOPHILS ABSOLUTE AUTO 0.12 K/mm3 (0.00-0.68); EOSINOPHILS PERCENT AUTO 2 % (0-6); Hematocrit 43.6 % (33.0-51.0); Hemoglobin 14.4 g/dL (11.5-16.0); IMMATURE GRAN ABSOLUTE AUTO 0.02 K/mm3 (0.00-0.10); IMMATURE GRAN PERCENT AUTO 0 % (0-1); LYMPHOCYTES ABSOLUTE AUTO 2.02 K/mm3 (0.84-5.20); LYMPHOCYTES PERCENT AUTO 28 % (21-46); MONOCYTES ABSOLUTE AUTO 0.85 K/mm3 (0.16-1.47); MONOCYTES PERCENT AUTO 12 % (4-13); Mean Corpuscular Volume 82 fL (80-100); Mean Platelet Volume 10.9 fL (9.1-12.4); NEUTROPHILS ABSOLUTE AUTO 4.14 K/mm3 (1.96-9.15); NEUTROPHILS PERCENT AUTO 57 % (41-73); Platelet Count 350 K/mm3 (150-400); RDW Coefficient Variation 15.8 % (11.7-14.2); RDW Standard Deviation 46.2 fL (35.1-46.3); Red Blood Cell Count 5.33 M/mm3 (3.80-5.20); White Blood Cell Count 7.24 K/mm3 (4.00-11.30)
[2022-11-06 16:02] LABS: Albumin, Blood 3.5 g/dL (3.4-5.0); Albumin/Globulin Ratio 0.7 (0.8-1.8); Bilirubin, Total 0.4 mg/dL (0.1-1.0); Bun/Creatinine Ratio 28.4 (12.0-20.0); Calcium, Blood 9.3 mg/dL (8.5-10.1); Creatinine, Blood 1.09 mg/dL (0.40-1.00); Globulin, Blood 4.9 g/dL (2.2-4.0); Potassium, Blood 4.7 mmol/L (3.5-5.5); Total Protein, Blood 8.4 g/dL (6.4-8.2)
[2022-11-06 16:15] LABS: Influenza A, PCR NEGATIVE (NEGATIVE); Influenza B, PCR NEGATIVE (NEGATIVE); Resp Syncytial Virus, PCR NEGATIVE (NEGATIVE); SARS-Cov-2 (COVID-19) PCR, MMC NEGATIVE (NEGATIVE)
== END 2022-11-06 17:01 | disposition left against medical advice (07) ==
LOC: ER 15:08
PROVIDERS: Physician Assistant
DX: R07.9 Chest pain, unspecified (principal); Z53.21 Procedure and treatment not carried out due to patient leaving prior to being seen by health care provider
CPT/HCPCS: 0241U; 36415; 71045; 80053; 83880; 84484; 85025

== ENCOUNTER → 2023-04-06 | Outpatient (CLI) | payer OTHER ==
[~2023-04-06] MED LIST changes: +LEVOFLOXACIN 500 MG
== END | disposition home or self-care (01) ==
LOC: LAB 12:00 → LAB SHORT 12:00
DX: T81.31XD Disruption of external operation (surgical) wound, not elsewhere classified, subsequent encounter (principal)
CPT/HCPCS: 87070; 87077; 87147; 87186; 87205

== ENCOUNTER 2023-07-19 22:22 | Emergency (ER) | payer OTHER ==
[~2023-07-19] VITALS: Ht 170.2 cm; Wt 122.5 kg
[2023-07-19 22:44] LABS: BASOPHILS ABSOLUTE AUTO 0.05 K/mm3 (0.00-0.23); BASOPHILS PERCENT AUTO 1 % (0-2); EOSINOPHILS PERCENT AUTO 2 % (0-6); Hematocrit 38.2 % (33.0-51.0); Hemoglobin 12.4 g/dL (11.5-16.0); IMMATURE GRAN ABSOLUTE AUTO 0.02 K/mm3 (0.00-0.10); IMMATURE GRAN PERCENT AUTO 0 % (0-1); LYMPHOCYTES ABSOLUTE AUTO 2.31 K/mm3 (0.84-5.20); LYMPHOCYTES PERCENT AUTO 28 % (21-46); MONOCYTES PERCENT AUTO 10 % (4-13); Mean Corpuscular HGB 28.1 pg (26.0-34.0); Mean Corpuscular HGB Conc 32.5 g/dL (31.5-36.5); Mean Corpuscular Volume 86 fL (80-100); Mean Platelet Volume 11.1 fL (9.1-12.4); NEUTROPHILS ABSOLUTE AUTO 4.84 K/mm3 (1.96-9.15); NEUTROPHILS PERCENT AUTO 59 % (41-73); Platelet Count 274 K/mm3 (150-400); RDW Coefficient Variation 14.8 % (11.7-14.2); RDW Standard Deviation 47.7 fL (35.1-46.3); Red Blood Cell Count 4.42 M/mm3 (3.80-5.20); White Blood Cell Count 8.22 K/mm3 (4.00-11.30)
[2023-07-19 23:03] LABS: Albumin, Blood 3.3 g/dL (3.4-5.0); Albumin/Globulin Ratio 0.7 (0.8-1.8); Bilirubin, Total 0.3 mg/dL (0.1-1.0); Bun/Creatinine Ratio 24.8 (12.0-20.0); Creatinine, Blood 0.93 mg/dL (0.40-1.00); Globulin, Blood 4.5 g/dL (2.2-4.0); Potassium, Blood 3.8 mmol/L (3.5-5.5); Total Protein, Blood 7.8 g/dL (6.4-8.2)
[2023-07-20 01:00] VITALS: BP 118/50
== END 2023-07-20 01:23 | disposition home or self-care (01) ==
LOC: ER 22:22
PROVIDERS: Student in an Organized Health Care Education/Training Program
DX: R07.89 Other chest pain (principal); I25.2 Old myocardial infarction; E78.5 Hyperlipidemia, unspecified; E03.9 Hypothyroidism, unspecified; Z91.030 Bee allergy status; Z91.048 Other nonmedicinal substance allergy status; Z88.1 Allergy status to other antibiotic agents; Z88.5 Allergy status to narcotic agent; Z79.899 Other long term (current) drug therapy; Z79.82 Long term (current) use of aspirin
CPT/HCPCS: 71046; 80053; 83880; 84484; 85025; 93005; 93010; 99285-25

== ENCOUNTER 2023-07-20 06:18 | Day surgery (SDC) | payer OTHER ==
[~2023-07-20] VITALS: Ht 170.2 cm; Wt 123.1 kg
--- NOTE | 2023-07-20 07:00 | NUR ---
07/20/23 0700 Saloni Pittman BETADINE APPLIED TO LEFT FORARM BY ORSC.[email or web address]. NO REACTION
[2023-07-20 08:21] VITALS: BP 124/49
--- NOTE | 2023-07-20 08:45 | NUR ---
07/20/23 0845 Nico Lynch IV REMOVED INTACT. SITE WNL.
== END 2023-07-20 08:37 | disposition home or self-care (01) ==
LOC: ORSCSDS 06:18
PROVIDERS: Student in an Organized Health Care Education/Training Program
PROC: 08RK3JZ Replacement of Left Lens with Synthetic Substitute, Percutaneous Approach (ICD-10-PCS; principal; 2023-07-20 08:00)
DX: E11.36 Type 2 diabetes mellitus with diabetic cataract (principal); H25.12 Age-related nuclear cataract, left eye; I25.10 Atherosclerotic heart disease of native coronary artery without angina pectoris; I12.9 Hypertensive chronic kidney disease with stage 1 through stage 4 chronic kidney disease, or unspecified chronic kidney disease; E11.22 Type 2 diabetes mellitus with diabetic chronic kidney disease; N18.31 Chronic kidney disease, stage 3a; K21.9 Gastro-esophageal reflux disease without esophagitis; E03.9 Hypothyroidism, unspecified; G47.33 Obstructive sleep apnea (adult) (pediatric); E66.01 Morbid (severe) obesity due to excess calories; Z68.42 Body mass index [BMI] 45.0-49.9, adult; Z79.899 Other long term (current) drug therapy
CPT/HCPCS: J2001; J2250; J3010; J7040; V2632

== ENCOUNTER 2023-07-27 09:26 | Day surgery (SDC) | payer OTHER ==
[~2023-07-27] VITALS: Ht 170.2 cm; Wt 122.2 kg
--- NOTE | 2023-07-27 09:57 | NUR ---
07/27/23 0957 Gianni Mcclain CALL LIGHT WITHIN REACH. TETRACAINE IN RIGHT EYE AT 0955 AND PLEDGETT IN AT 0956
[2023-07-27 11:23] VITALS: BP 119/75
--- NOTE | 2023-07-27 12:03 | NUR ---
07/27/23 1203 Nico Lynch IV REMOVED INTACT. SITE WNL.
== END 2023-07-27 11:38 | disposition home or self-care (01) ==
LOC: ORSCSDS 09:26
PROVIDERS: Student in an Organized Health Care Education/Training Program
PROC: 08RJ3JZ Replacement of Right Lens with Synthetic Substitute, Percutaneous Approach (ICD-10-PCS; principal; 2023-07-27 11:00)
DX: H25.11 Age-related nuclear cataract, right eye (principal); Z96.1 Presence of intraocular lens; I25.10 Atherosclerotic heart disease of native coronary artery without angina pectoris; G47.33 Obstructive sleep apnea (adult) (pediatric); I12.9 Hypertensive chronic kidney disease with stage 1 through stage 4 chronic kidney disease, or unspecified chronic kidney disease; N18.30 Chronic kidney disease, stage 3 unspecified; Z79.899 Other long term (current) drug therapy
CPT/HCPCS: J2250; J3010; J7040; V2632

== ENCOUNTER 2023-10-08 06:04 | Day surgery (SDC) | payer OTHER ==
[~2023-10-08] VITALS: Ht 165 cm; Wt 123.5 kg
[2023-10-08] VITALS (21 sets, daily range): BP systolic 75–122; BP diastolic 41–66
[~2023-10-08 06:04] MED LIST changes: +ASPI81CH PO; +BACLOFEN10 M4 PO; -CONEST.625 PO; +CONEST.625 VAG; +ESOMEPRAZOLE MA20 MG PO; +LISI5 PO; +TROSPIUM CHLORI20 M1 PO; +Tessalon200 MG PO; +[UNRECOGNIZED DRUG - OTHER] PO
--- NOTE | 2023-10-08 10:14 | NUR ---
History, Chart, Medications and Allergies reviewed before start of procedure. Ambulatory in Day Surgery. Pre-Op teaching done. Pt verbalizes understanding. Patient confirms NPO status and agrees with scheduled surgery. Patient reports completing Chlorhexadine shower X2 prior to admission to hospital. Surgical site prepped with 2% Chlorhexidine cloth wipe. Lungs clear T/O to Auscultation. Patient States Post-Procedure ride home has been arranged.
--- NOTE | 2023-10-08 12:19 | NUR ---
PT ARRIVED TO UNIT AT APROX 1219. PT IS A/O X'S 4. POD 0 L TSA, AQUACEL DRESSING TO L SHOULDER C/D/I. SLING/IMMOBILIZER TO L SHOULDER. PT WIGGLES FINGERS, HAS FULL SENSATION. REPORTS PAIN TOLREABLE 4/10 ONCE SETTLED IN BED, ELEVATED ON PILLOW. PT REPORTS SHE LIVES AT HOME WITH AND 11 AND 16 Y/O GRANDCHILDREN. STATES THAT HER IS NOT ABLE TO HELP HER DURING HER RECOVERY. STATES SHE WAS HOPING THAT INSURANCE WOULD BE ABLE TO HELP WITH HAVING A CAREGIVER DURING HER RECOVERY. PT/OT EVAL ORDERED. PT DENIES HX OF DM OR RADHA ALTHOUGH DM2 IS LISTED IN HER MEDICAL HX. LUNGS DIM T/O, PT TAKES DEEP BREATHES ON COMMAND BUT DOES APPEAR TO HAVE SHORT APNEC SPELLS WHEN ASLEEP. ENVIRONMENTAL MANAGEMENT SPECIALIST ASKED TO LOOK INTO RESOURCES FOR PT.
--- NOTE | 2023-10-09 04:29 | NUR ---
SHIFT SUMMARY POD 1 L REVERSE TOTAL SHOULDER. NO ACUTE CHANGES OVERNIGHT. VSS. AQUACEL C/D/I, SLING IN PLACE. PT REPORTS NUMBNESS FROM C5-C6, DENIES TINGLING, CAN WIGGLE ALL FINGERS WHEN ASKED. PT REPORTS PAIN MANAGEABLE, MEDICATED PER EMAR. TOLERATING ORALS. AMBULATES c FWW & SBA. SLEEP STUDY PERFORMED OVERNIGHT, PT TOLERATED WELL. ANTICIPATED D/C LATER TODAY. CALL LIGHT WITHIN REACH, BED IN LOWEST POSITION, WILL REPORT TO DAY RN.
[2023-10-09 04:51] VITALS: BP 126/47
[2023-10-09 05:54] LABS: BASOPHILS ABSOLUTE AUTO 0.01 K/mm3 (0.00-0.23); BASOPHILS PERCENT AUTO 0 % (0-2); EOSINOPHILS PERCENT AUTO 0 % (0-6); Hematocrit 36.6 % (33.0-51.0); Hemoglobin 11.4 g/dL (11.5-16.0); IMMATURE GRAN ABSOLUTE AUTO 0.04 K/mm3 (0.00-0.10); IMMATURE GRAN PERCENT AUTO 0 % (0-1); LYMPHOCYTES ABSOLUTE AUTO 1.29 K/mm3 (0.84-5.20); LYMPHOCYTES PERCENT AUTO 10 % (21-46); MONOCYTES ABSOLUTE AUTO 0.98 K/mm3 (0.16-1.47); MONOCYTES PERCENT AUTO 7 % (4-13); Mean Corpuscular HGB Conc 31.1 g/dL (31.5-36.5); Mean Corpuscular Volume 90 fL (80-100); Mean Platelet Volume 11.2 fL (9.1-12.4); NEUTROPHILS ABSOLUTE AUTO 11.31 K/mm3 (1.96-9.15); NEUTROPHILS PERCENT AUTO 83 % (41-73); Platelet Count 251 K/mm3 (150-400); RDW Coefficient Variation 14.6 % (11.7-14.2); RDW Standard Deviation 48.3 fL (35.1-46.3); Red Blood Cell Count 4.07 M/mm3 (3.80-5.20); White Blood Cell Count 13.63 K/mm3 (4.00-11.30)
[2023-10-09 06:28] LABS: Bun/Creatinine Ratio 19.7 (12.0-20.0); Calcium, Blood 8.5 mg/dL (8.5-10.1); Creatinine, Blood 1.17 mg/dL (0.40-1.00); Potassium, Blood 4.4 mmol/L (3.5-5.5)
[2023-10-09 07:34] VITALS: BP 107/49
[2023-10-09] MEDS ORDERED: Percocet 5-3251 EACH PO (12:07)
[2023-10-09 13:01] VITALS: BP 105/49
--- NOTE | 2023-10-09 13:22 | NUR ---
DISCHARGE SUMMARY PT A&OX4, VSS/RA, JANET PO, VOIDING, AMB INDEPENDENTLY WITH IMMOBILIZER ON/NWB, PAIN MANAGED, AQUACEL CDI. DC INS PROVIDED TO PT AND SPOUSE; REP UNDERSTANDING THOSE INSTRUCTIONS INCLUDING DRESSING CHANGES, FU APPT WITH SURGEON, WEAR IMMOBILIZER AT ALL TIMES AND NWB. LEFT FLOOR VIA WC WITH QUALITY CONTROL SPECIALIST TO GO HOME WITH , WITH ALL PERSONAL POSSESSIONS INCLUDING DC PACKET AND AQUACEL DRESSINGS.
== END 2023-10-09 13:30 | disposition home or self-care (01) ==
LOC: ORSCMMR 06:04 → ORD 07:30 → ORSCSDS 07:30 → SURS 12:04 → ORSCMMR 10-09 13:30
PROVIDERS: Orthopaedic Surgery
PROC: 0RRK00Z Replacement of Left Shoulder Joint with Reverse Ball and Socket Synthetic Substitute, Open Approach (ICD-10-PCS; principal; 2023-10-08 07:30)
PROC: 0XB30ZZ Excision of Left Shoulder Region, Open Approach (ICD-10-PCS; principal; 2023-10-08 07:30)
DX: M12.812 Other specific arthropathies, not elsewhere classified, left shoulder (principal); G47.33 Obstructive sleep apnea (adult) (pediatric); I25.2 Old myocardial infarction; E03.9 Hypothyroidism, unspecified; E66.01 Morbid (severe) obesity due to excess calories; Z68.41 Body mass index [BMI] 40.0-44.9, adult; K21.9 Gastro-esophageal reflux disease without esophagitis; I12.9 Hypertensive chronic kidney disease with stage 1 through stage 4 chronic kidney disease, or unspecified chronic kidney disease; N18.9 Chronic kidney disease, unspecified; I48.91 Unspecified atrial fibrillation; Z79.899 Other long term (current) drug therapy
CPT/HCPCS: 36415; 73030; 80048; 82947; 85025; 94762; 97110; 97161; 97166; 97535; A9270; C1713; C1776; J0171; J0690; J0735; J1100; J1885; J2371; J2405; J2704; J2795; J3010; J7120

== ENCOUNTER 2023-11-11 11:27 | Day surgery (SDC) | payer OTHER ==
[~2023-11-11] VITALS: Ht 170.2 cm; Wt 122.2 kg
[2023-11-11 14:03] VITALS: BP 125/71
== END 2023-11-11 14:07 | disposition home or self-care (01) ==
LOC: ORSCSDS 11:27
PROVIDERS: Internal Medicine Gastroenterology
PROC: 0DBA8ZX Excision of Jejunum, Via Natural or Artificial Opening Endoscopic, Diagnostic (ICD-10-PCS; principal; 2023-11-11 12:45)
PROC: 0DBH8ZX Excision of Cecum, Via Natural or Artificial Opening Endoscopic, Diagnostic (ICD-10-PCS; principal; 2023-11-11 12:45)
PROC: 0D757ZZ Dilation of Esophagus, Via Natural or Artificial Opening (ICD-10-PCS; principal; 2023-11-11 12:45)
PROC: 0DB58ZX Excision of Esophagus, Via Natural or Artificial Opening Endoscopic, Diagnostic (ICD-10-PCS; principal; 2023-11-11 12:45)
PROC: 0DBL8ZX Excision of Transverse Colon, Via Natural or Artificial Opening Endoscopic, Diagnostic (ICD-10-PCS; principal; 2023-11-11 12:45)
PROC: 0DB68ZX Excision of Stomach, Via Natural or Artificial Opening Endoscopic, Diagnostic (ICD-10-PCS; principal; 2023-11-11 12:45)
PROC: 0DBK8ZX Excision of Ascending Colon, Via Natural or Artificial Opening Endoscopic, Diagnostic (ICD-10-PCS; principal; 2023-11-11 12:45)
DX: R13.10 Dysphagia, unspecified (principal); K21.9 Gastro-esophageal reflux disease without esophagitis; R10.32 Left lower quadrant pain; R19.7 Diarrhea, unspecified; Z86.010 Personal history of colon polyps; Z80.0 Family history of malignant neoplasm of digestive organs; D12.0 Benign neoplasm of cecum; D12.2 Benign neoplasm of ascending colon; D12.3 Benign neoplasm of transverse colon; K52.832 Lymphocytic colitis; I48.91 Unspecified atrial fibrillation; I10 Essential (primary) hypertension; Z98.84 Bariatric surgery status; E11.9 Type 2 diabetes mellitus without complications; I25.2 Old myocardial infarction; G47.33 Obstructive sleep apnea (adult) (pediatric); E66.9 Obesity, unspecified; Z68.41 Body mass index [BMI] 40.0-44.9, adult; Z79.899 Other long term (current) drug therapy
CPT/HCPCS: 82947; 88305; 88342; J2704

== ENCOUNTER 2024-06-03 17:25 | Emergency (ER) | payer OTHER ==
[~2024-06-03] VITALS: Ht 170.2 cm; Wt 131.1 kg
[2024-06-03 17:33] VITALS: BP 145/66
[2024-06-03 18:26] LABS: BASOPHILS ABSOLUTE AUTO 0.04 K/mm3 (0.00-0.23); BASOPHILS PERCENT AUTO 1 % (0-2); EOSINOPHILS ABSOLUTE AUTO 0.13 K/mm3 (0.00-0.68); EOSINOPHILS PERCENT AUTO 2 % (0-6); Hematocrit 41.1 % (33.0-51.0); Hemoglobin 12.7 g/dL (11.5-16.0); IMMATURE GRAN ABSOLUTE AUTO 0.02 K/mm3 (0.00-0.10); IMMATURE GRAN PERCENT AUTO 0 % (0-1); LYMPHOCYTES PERCENT AUTO 23 % (21-46); MONOCYTES ABSOLUTE AUTO 0.79 K/mm3 (0.16-1.47); MONOCYTES PERCENT AUTO 11 % (4-13); Mean Corpuscular HGB 26.2 pg (26.0-34.0); Mean Corpuscular HGB Conc 30.9 g/dL (31.5-36.5); Mean Corpuscular Volume 85 fL (80-100); Mean Platelet Volume 10.7 fL (9.1-12.4); NEUTROPHILS ABSOLUTE AUTO 4.81 K/mm3 (1.96-9.15); NEUTROPHILS PERCENT AUTO 64 % (41-73); Platelet Count 332 K/mm3 (150-400); RDW Coefficient Variation 15.4 % (11.7-14.2); RDW Standard Deviation 47.3 fL (35.1-46.3); Red Blood Cell Count 4.85 M/mm3 (3.80-5.20); White Blood Cell Count 7.49 K/mm3 (4.00-11.30)
[2024-06-03 18:42] LABS: Albumin, Blood 3.3 g/dL (3.4-5.0); Albumin/Globulin Ratio 0.8 (0.8-1.8); Bilirubin, Total 0.2 mg/dL (0.1-1.0); Bun/Creatinine Ratio 16.5 (12.0-20.0); Calcium, Blood 8.8 mg/dL (8.5-10.1); Creatinine, Blood 1.15 mg/dL (0.40-1.00); Globulin, Blood 4.4 g/dL (2.2-4.0); Potassium, Blood 4.2 mmol/L (3.5-5.5); Total Protein, Blood 7.7 g/dL (6.4-8.2)
[2024-06-03 18:43] LABS: Influenza A, PCR NEGATIVE (NEGATIVE); Influenza B, PCR NEGATIVE (NEGATIVE); Resp Syncytial Virus, PCR NEGATIVE (NEGATIVE); SARS-Cov-2 (COVID-19) PCR, MMC NEGATIVE (NEGATIVE)
[2024-06-03 19:04] LABS: Source, Urine Clean Catch
[2024-06-03 19:15] LABS: Appearance, Urine Hazy (Clear); Bilirubin, Urine Neg (Neg); Blood, Urine 4+ (Neg); Color, Urine Yellow (P-Yellow); Glucose Qualitative, Urine 4+ (Neg); Ketones, Urine Neg (Neg); Leukocyte Esterase, Urine 3+ (Neg); Nitrite, Urine Neg (Neg); Protein, Urine 2+ (Neg); Urobilinogen, Urine NORM (Normal)
[2024-06-03 19:23] LABS: Bacteria Many /hpf; Squamous Epithelial Cells Few /hpf (Few)
== END 2024-06-03 20:58 | disposition left against medical advice (07) ==
LOC: ER 17:25
PROVIDERS: Student in an Organized Health Care Education/Training Program
DX: R10.9 Unspecified abdominal pain (principal); Z53.29 Procedure and treatment not carried out because of patient's decision for other reasons
CPT/HCPCS: 0241U; 80053; 81001; 83690; 85025; 87086; 87147; 93005; 93010; 99282-25

== ENCOUNTER → 2024-06-04 | Outpatient (CLI) | payer OTHER | LOC: LAB 11:37 → LAB SHORT 11:37 | DX: N39.0 Urinary tract infection, site not specified (principal) | CPT/HCPCS: 87077; 87086; 87147; 87186 ==

== ENCOUNTER 2024-09-01 17:11 | Emergency (ER) | payer OTHER ==
[~2024-09-01] VITALS: Ht 167.6 cm; Wt 130.6 kg
[2024-09-01 17:47] LABS: BASOPHILS ABSOLUTE AUTO 0.07 K/mm3 (0.00-0.23); BASOPHILS PERCENT AUTO 1 % (0-2); EOSINOPHILS ABSOLUTE AUTO 0.14 K/mm3 (0.00-0.68); EOSINOPHILS PERCENT AUTO 2 % (0-6); Hematocrit 40.9 % (33.0-51.0); Hemoglobin 12.9 g/dL (11.5-16.0); IMMATURE GRAN ABSOLUTE AUTO 0.01 K/mm3 (0.00-0.10); IMMATURE GRAN PERCENT AUTO 0 % (0-1); LYMPHOCYTES ABSOLUTE AUTO 2.22 K/mm3 (0.84-5.20); LYMPHOCYTES PERCENT AUTO 32 % (21-46); MONOCYTES ABSOLUTE AUTO 0.67 K/mm3 (0.16-1.47); MONOCYTES PERCENT AUTO 10 % (4-13); Mean Corpuscular HGB 26.1 pg (26.0-34.0); Mean Corpuscular HGB Conc 31.5 g/dL (31.5-36.5); Mean Corpuscular Volume 83 fL (80-100); Mean Platelet Volume 11.3 fL (9.1-12.4); NEUTROPHILS ABSOLUTE AUTO 3.88 K/mm3 (1.96-9.15); NEUTROPHILS PERCENT AUTO 56 % (41-73); Platelet Count 260 K/mm3 (150-400); RDW Coefficient Variation 17.5 % (11.7-14.2); RDW Standard Deviation 52.9 fL (35.1-46.3); Red Blood Cell Count 4.95 M/mm3 (3.80-5.20); White Blood Cell Count 6.99 K/mm3 (4.00-11.30)
[2024-09-01] MEDS ORDERED: FentaNYL Citrate 50 MCG/ML 2 ML Injection IV ONE (18:00)
[2024-09-01 18:07] LABS: Albumin, Blood 3.1 g/dL (3.4-5.0); Albumin/Globulin Ratio 0.7 (0.8-1.8); Bilirubin, Total 0.6 mg/dL (0.1-1.0); Bun/Creatinine Ratio 13.6 (12.0-20.0); Calcium, Blood 8.4 mg/dL (8.5-10.1); Creatinine, Blood 0.96 mg/dL (0.40-1.00); Globulin, Blood 4.3 g/dL (2.2-4.0); Potassium, Blood 4.9 mmol/L (3.5-5.5); Total Protein, Blood 7.4 g/dL (6.4-8.2)
[2024-09-01 21:19] VITALS: BP 119/65
== END 2024-09-01 21:25 | disposition home or self-care (01) ==
LOC: ER 17:11
PROVIDERS: Emergency Medicine
DX: R07.2 Precordial pain (principal); Z88.8 Allergy status to other drugs, medicaments and biological substances; Z88.5 Allergy status to narcotic agent; Z79.899 Other long term (current) drug therapy; K21.9 Gastro-esophageal reflux disease without esophagitis; M19.90 Unspecified osteoarthritis, unspecified site; E78.5 Hyperlipidemia, unspecified; E03.9 Hypothyroidism, unspecified; I25.2 Old myocardial infarction
CPT/HCPCS: 71046; 80053; 84484; 85025; 93005; 93010; 99285-25

== ENCOUNTER → 2024-10-31 | Outpatient (CLI) | payer OTHER ==
[2024-10-31 13:26] LABS: BASOPHILS ABSOLUTE AUTO 0.06 K/mm3 (0.00-0.23); BASOPHILS PERCENT AUTO 1 % (0-2); EOSINOPHILS ABSOLUTE AUTO 0.09 K/mm3 (0.00-0.68); EOSINOPHILS PERCENT AUTO 2 % (0-6); Hematocrit 41.7 % (33.0-51.0); Hemoglobin 13.4 g/dL (11.5-16.0); IMMATURE GRAN ABSOLUTE AUTO 0.01 K/mm3 (0.00-0.10); IMMATURE GRAN PERCENT AUTO 0 % (0-1); LYMPHOCYTES ABSOLUTE AUTO 1.59 K/mm3 (0.84-5.20); LYMPHOCYTES PERCENT AUTO 27 % (21-46); MONOCYTES ABSOLUTE AUTO 0.53 K/mm3 (0.16-1.47); MONOCYTES PERCENT AUTO 9 % (4-13); Mean Corpuscular HGB 27.5 pg (26.0-34.0); Mean Corpuscular HGB Conc 32.1 g/dL (31.5-36.5); Mean Corpuscular Volume 86 fL (80-100); Mean Platelet Volume 11.2 fL (9.1-12.4); NEUTROPHILS ABSOLUTE AUTO 3.63 K/mm3 (1.96-9.15); NEUTROPHILS PERCENT AUTO 61 % (41-73); Platelet Count 280 K/mm3 (150-400); RDW Coefficient Variation 16.7 % (11.7-14.2); RDW Standard Deviation 51.8 fL (35.1-46.3); Red Blood Cell Count 4.87 M/mm3 (3.80-5.20); White Blood Cell Count 5.91 K/mm3 (4.00-11.30)
[2024-10-31 14:01] LABS: Calcium, Blood 9.1 mg/dL (8.5-10.1); Creatinine, Blood 0.92 mg/dL (0.40-1.00)
== END ==
LOC: LAB 10:57 → LAB SHORT 10:57 → LAB FUT 01-06 11:00
PROVIDERS: Podiatrist Foot & Ankle Surgery
DX: Z01.812 Encounter for preprocedural laboratory examination (principal); N39.0 Urinary tract infection, site not specified; M19.90 Unspecified osteoarthritis, unspecified site; E11.42 Type 2 diabetes mellitus with diabetic polyneuropathy
CPT/HCPCS: 36415; 80048; 83036; 85025

== ENCOUNTER 2024-11-03 10:40 | Day surgery (SDC) | payer OTHER ==
[~2024-11-03] VITALS: Ht 170.2 cm; Wt 125.4 kg
[~2024-11-03 10:40] MED LIST changes: +Lactated Ringer's 1,000 ML IV ONE; +Ropivacaine 0.5% HCL/PF 5 MG/ML 30ML Vial ONE
[2024-11-03] MEDS ORDERED: JARDIANCE10 MG PO (11:09)
[2024-11-03] MEDS ORDERED: EMGALITY S120 MG/1 M SQ (11:11)
[2024-11-03] MEDS ORDERED: Lactated Ringer's 1,000 ML IV ONE (11:16)
[2024-11-03] MEDS ORDERED: CeFAZolin Sodium 3,000 MG in NS 100 ML IV SCH (11:30)
[2024-11-03] MEDS ORDERED: Clindamycin 900mg in D5W 50ML 50 ML IV ONE (12:51)
[2024-11-03] MEDS ORDERED: propofoL 20 ML IV ONE (13:00)
[2024-11-03] MEDS ORDERED: FentaNYL Citrate 50 MCG/ML 2 ML Injection ONE (13:00)
[2024-11-03] MEDS ORDERED: Rocuronium Bromide 10 MG/ML 5ML Injection IV ONE (13:02)
--- NOTE | 2024-11-03 13:10 | NUR ---
[facility] PATIENT'S ALLERGY TO KEFLEX-REACTION BEING RASH TO FACE AND NECK- WITH DR SWARTZ AND DR WALKER. PER DR SWARTZ CHANGE ORDER TO CLINDAMYCIN 900 MG IVPB.
[2024-11-03] MEDS ORDERED: Droperidol 5 mg/2 ml Vial ONE (14:28)
[2024-11-03 15:41] VITALS: BP 120/58
--- NOTE | 2024-11-03 15:45 | NUR ---
11/03/24 1545 Nico Lynch PT STATES B/P AT D/C WITHIN 20% OF BASELINE AT HOME. PT INSTRUCTED TO MONITOR B/P AT HOME. SHE DENIED CP, DIZZINESS, SOB, WEAKNESS, NAUSEA, AND OTHER CARDIAC SYMPTOMS. NONE WERE OBSERVED. PT ALERT, RELAXED, AND TALKATIVE UPON D/C. SHE DENIED PAIN/NAUSEA AND EXPRESSED READINESS TO RETURN HOME.
== END 2024-11-03 15:30 | disposition home or self-care (01) ==
LOC: ORSCSDS 10:40
PROVIDERS: Podiatrist Foot & Ankle Surgery
PROC: 0QBN0ZZ Excision of Right Metatarsal, Open Approach (ICD-10-PCS; principal; 2024-11-03 13:15)
DX: M19.071 Primary osteoarthritis, right ankle and foot (principal); E11.42 Type 2 diabetes mellitus with diabetic polyneuropathy; I48.91 Unspecified atrial fibrillation; I10 Essential (primary) hypertension; E03.9 Hypothyroidism, unspecified; G47.33 Obstructive sleep apnea (adult) (pediatric); E66.9 Obesity, unspecified; Z68.41 Body mass index [BMI] 40.0-44.9, adult; Z79.84 Long term (current) use of oral hypoglycemic drugs; Z79.899 Other long term (current) drug therapy
CPT/HCPCS: 82947; J0690; J1790; J2704; J2795; J3010; J7120

== ENCOUNTER 2025-02-26 02:58 | Emergency (ER) | payer OTHER ==
[~2025-02-26] VITALS: Ht 170.2 cm; Wt 118.8 kg
[~2025-02-26 02:58] MED LIST changes: +EMGALITY S120 MG/1 M SQ; +JARDIANCE10 MG PO; -Lactated Ringer's 1,000 ML IV ONE; -Ropivacaine 0.5% HCL/PF 5 MG/ML 30ML Vial ONE
[2025-02-26 03:24] VITALS: BP 102/47
[2025-02-26] MEDS ORDERED: DiphenhydrAMINE HCl 50 MG/ML 1ML Vial IV ONE (05:10)
[2025-02-26] MEDS ORDERED: Ketorolac Tromethamine 30mg Vial IV ONE (05:10)
[2025-02-26] MEDS ORDERED: Metoclopramide HCl 5MG / ML 2ML Vial IV ONE (05:10)
== END 2025-02-26 06:41 | disposition home or self-care (01) ==
LOC: ER 02:58
DX: G43.909 Migraine, unspecified, not intractable, without status migrainosus (principal); K21.9 Gastro-esophageal reflux disease without esophagitis; M19.90 Unspecified osteoarthritis, unspecified site; E78.5 Hyperlipidemia, unspecified; E03.9 Hypothyroidism, unspecified; Z79.899 Other long term (current) drug therapy; Z88.5 Allergy status to narcotic agent; Z88.8 Allergy status to other drugs, medicaments and biological substances
CPT/HCPCS: 96374; 96375; 99283-25; J1200; J1885; J2765